=== PATIENT | male | born 1945 | race Caucasian/White ===

== ENCOUNTER 2018-02-18 09:30 | Inpatient (IN) | payer MEDICARE, OTHER ==
[2018-02-18 09:38] VITALS: BMI 26.5
[2018-02-18] MEDS ORDERED: cefTRIAXone (Rocephin) 1 gm Inj IVPB ONE (09:59)
[2018-02-18] MEDS ORDERED: Sodium Chloride 0.9% 1,000 ML IV STA (09:59)
--- NOTE | 2018-02-18 10:08 | ED PDOC ---
HPI: Male Pain Time Seen by Provider: 02/18/18 10:04 Chief Complaint (Nursing): Male Genitourinary Chief Complaint (Provider): testicular swelling History Per: Patient (72 y/o male h/o Dementia, here with right testicular swelling noted by family. Patient has been seen at [facility] 2 weeks ago with goldberg catheter placed for urinary retention. Patient was seen by urology at that time and family was told an appointment to place suprapubic catheter would be arranged. No fevers noted at home. Patient's mentation has been progressively worsening x weeks. Of note, patient has h/o nephrectomy secondary to malignant renal tumor last year.) Past Medical History Reviewed: Historical Data, Nursing Documentation, Vital Signs Vital Signs: Last Vital Signs Temp 99.7 F H 02/18/18 09:39 Pulse 77 02/18/18 09:39 Resp 18 02/18/18 09:39 BP 90/50 L 02/18/18 09:39 Pulse Ox 97 02/18/18 09:39 - Medical History PMH: Cardia Arrhythmia, Dementia, HTN, Parkinson's Disease - Family History Family History: States: No Known Family Hx - Home Medications Home Medications: Ambulatory Orders Medication Instructions Recorded Aspirin [Ecotrin] 81 mg PO DAILY 02/18/18 Cholecalciferol (Vitamin D3) 1,000 unit PO DAILY 02/18/18 [Vitamin D3] Clonazepam 3 mg PO DAILY 02/18/18 Fenofibrate,Micronized 134 mg PO DAILY 02/18/18 [Fenofibrate] Folic Acid 1 mg PO DAILY 02/18/18 Furosemide [Lasix] 20 mg PO DAILY 02/18/18 Lactulose 20 gm PO QOTHERDAY 02/18/18 Magnesium Oxide [Mag-Oxide 400 mg PO DAILY 02/18/18 Magnesium] Melatonin [Meladox Natural Sleep 3 mg PO HS 02/18/18 Aid] Metoprolol Tartrate [Lopressor] 25 mg PO DAILY 02/18/18 Montelukast [Singulair] 10 mg PO DAILY 02/18/18 Oxybutynin XL [Ditropan XL] 15 mg PO DAILY 02/18/18 QUEtiapine [SEROquel] 50 mg PO DAILY 02/18/18 Tamsulosin [Flomax] 0.4 mg PO DAILY 02/18/18 traMADol [Ultram] 50 mg PO Q6 PRN 02/18/18 - Allergies Allergies/Adverse Reactions: Allergies Allergy/AdvReac Type Severity Reaction Status Date / Time No Known Allergies Allergy Verified 02/18/18 09:51 Review of Systems ROS Statement: Except As Marked, All Systems Reviewed And Found Negative Physical Exam - Reviewed Nursing Documentation Reviewed: Yes Vital Signs Reviewed: Yes - Physical Exam Appears: Positive for: Well, Non-toxic, No Acute Distress Head Exam: Positive for: ATRAUMATIC, NORMAL INSPECTION, NORMOCEPHALIC Skin: Positive for: Normal Color, Warm, DRY Eye Exam: Positive for: EOMI, Normal appearance, PERRL ENT: Positive for: Normal ENT Inspection Neck: Positive for: Normal, Painless ROM Cardiovascular/Chest: Positive for: Regular Rate, Rhythm Respiratory: Positive for: CNT, Normal Breath Sounds Gastrointestinal/Abdominal: Positive for: Normal Exam, Soft Male Genital Exam: Positive for: other (right testicular swelling) Back: Positive for: Normal Inspection Extremity: Positive for: Normal ROM Neurologic/Psych: Positive for: Alert, Oriented - Laboratory Results Result Diagrams: 02/18/18 10:20 02/18/18 10:20 - ECG O2 Sat by Pulse Oximetry: 97 - Progress ED Course And Treament: NS 500 ml iv bolus Repeat BP 127/70 BC x 2 sent Rocephin 1 gm iv x 1 dose Goldberg catheter removed and replaced by nursing staff d/w Dr. Morales ultrasound testicular: IMPRESSION: There are bilateral epididymal cysts and/or spermatoceles. Moderate size right- sided hydrocele d/w dr. menon Disposition - Clinical Impression Clinical Impression: Urinary tract infection, Altered mental status, Dementia - Patient ED Disposition Is Patient to be Admitted: Yes - Disposition Disposition Time: 12:42 Condition: FAIR Instructions: Altered Mental Status (DC), Dementia (Including Alzheimer Disease), Urinary Tract Infections in Adults - Pt Status Changed To: Hospital Disposition Of: Observation
[2018-02-18 10:31] LABS: VENOUS BLOOD GAS BASE EXCESS 2.4 mmol/L (0.0-2.0); VENOUS BLOOD GAS PCO2 42 mmHg (40-60); VENOUS BLOOD GAS PO2 32 mm/Hg (30-55); VENOUS BLOOD PH 7.42 (7.32-7.43)
[2018-02-18] MEDS ORDERED: cefTRIAXone (Rocephin) 1 gm Inj ONE (10:34)
[2018-02-18 10:47] LABS: BASO # 0.1 K/uL (0.0-0.2); BASO % 0.6 % (0.0-2.0); EOS # 0.4 K/uL (0.0-0.7); EOS % 3.5 % (0.0-4.0); HEMOGLOBIN 10.9 g/dL (12.0-18.0); LYMPH # 1.1 K/uL (1.0-4.3); LYMPH % 10.2 % (20.0-40.0); MEAN CELL VOLUME 95.2 fl (80.0-94.0); MEAN CORPUSCULAR HEMOGLOBIN 31.3 pg (27.0-31.0); MEAN CORPUSCULAR HGB CONC 32.9 g/dL (33.0-37.0); MEAN PLATELET VOLUME 8.7 fl (7.2-11.7); MONO % 9.9 % (0.0-10.0); NEUT % 75.8 % (50.0-75.0); NRBC % 0.2 % (0.0-0.0); RBC 3.5 Mil/uL (4.40-5.90); RED CELL DISTRIBUTION WIDTH 13.6 % (11.5-14.5); WHITE BLOOD COUNT 10.6 K/uL (4.8-10.8)
--- NOTE | 2018-02-18 10:50 | RAD ---
Date of service: 02/18/2018 HISTORY: routine COMPARISON: There FINDINGS: LUNGS: There appears to be minimal linear atelectasis seen in the right mid to lower lung field PLEURA: No significant pleural effusion identified, no pneumothorax apparent. CARDIOVASCULAR: Aortic atherosclerotic calcification present. Normal cardiac size. No pulmonary vascular congestion. OSSEOUS STRUCTURES: There are the 2 tiny metallic fixation tacks overlying the right humeral head likely due to prior rotator cuff repair VISUALIZED UPPER ABDOMEN: Normal. OTHER FINDINGS: None. IMPRESSION: Minimal linear atelectasis right mid to lower lung field
[2018-02-18 11:12] LABS: SQUAMOUS EPITHIAL 1 /hpf (0-5); URINE BACTERIA RARE (<OCC); URINE BILIRUBIN NEGATIVE (NEGATIVE); URINE BLOOD SMALL (NEGATIVE); URINE CALCIUM OXALATE CRYSTALS RARE /hpf (<OCC); URINE CLARITY CLOUDY (Clear); URINE COLOR YELLOW (YELLOW); URINE GLUCOSE (UA) NEG (Normal); URINE HYALINE CAST 0-2 /hpf (0-2); URINE LEUKOCYTE ESTERASE LARGE Leu/uL (Negative); URINE PROTEIN 30 mg/dL (NEGATIVE); URINE UROBILINOGEN 0.2-1.0 mg/dL (0.2-1.0)
[2018-02-18 11:19] LABS: ALB/GLOB RATIO 1.1 (1.0-2.1); ALBUMIN 3.4 g/dL (3.5-5.0); ALT/SGPT 16 U/L (21-72); AST/SGOT 21 U/L (17-59); BLOOD UREA NITROGEN 27 mg/dl (9-20); CALCIUM 9.2 mg/dL (8.4-10.2); GFR NON-AFRICAN AMERICAN 46
--- NOTE | 2018-02-18 12:38 | US ---
Date of service: 02/18/2018 HISTORY: testicular swelling right TECHNIQUE: Realtime sonography through the scrotum with color and doppler flow. COMPARISON: None Available. FINDINGS: RIGHT TESTICLE: Measures 4.3 x 2.1 x 2.6 cm. Normal echotexture and flow. There is a right-sided appendix testis which measures approximately 0.5 x 0.3 x 0.4 cm. RIGHT EPIDIDYMIS: Epididymal head measures 0.8 x 0.8 x 0.8 cm. . There is a several small cysts and/or spermatoceles right epididymis; the 1st measures approximately 0.25cm in greatest dimension, the 2nd measures approximately 0.44 cm in greatest dimension and the 3rd measures 0.28 cm in greatest dimension. Right epididymis exhibits normal flow. LEFT TESTICLE: Measures 4.5 x 2.0 x 2.5 cm. Normal echotexture and flow. LEFT EPIDIDYMIS: Epididymal head measures 1.0 x 0.7 x 1.2 cm. Small epididymal cyst or spermatocele measuring 0.29 cm in greatest dimension. Right epididymis exhibits normal flow. HYDROCELE: Moderate-sized right-sided hydrocele.. VARICOCELE: None. OTHER FINDINGS: None. IMPRESSION: There are bilateral epididymal cysts and/or spermatoceles. Moderate size right-sided hydrocele
--- NOTE | 2018-02-18 15:32 | CP.PCM.HP ---
<Santi Mejia - Last Filed: 02/18/18 17:52> History of Present Illness - History of Present Illness History of Present Illness: Pt is demented with PMH of Parkinson, and HTN, malignant renal tumor, with h/o nephrectomy done last year; Presented to ER with his family due to swelling of testicle and foreskin of penis. All information were taken from family as patient was unable to respond to my questions. Family state that patient was seen in [facility] last week due to urinary retention. Urology was consulted, and suggested to arrange for placement of suprapubic catheter, which they failed to follow, Pt was discharged with Dwyer catheter, and nurses were coming to home to change it. in the past 3 days, his foreskin became swollen along with the testicle and they decided to bring him to [facility] ER. PMD: Dr Parrish Allergy: none Medication: see medication list PMH Parkinson, Htn, Renal tumor PSH: nephrectomy Social: no smoke,drink or drug use, live with ROS: unable to take due to patient mentation In ER course Pt recieved NS 500ml iv bolus BC x2 sent Rocephin was given Catheter was replaced by nurse Urology Dr Morales was consulted U/S There are bilateral epididymal cysts and/or spermatoceles. Moderate size right-sided hydrocele UA + for UTI Pt is demented with PMH of parkinson, and HTN, malignant renal tumor, will be admitted for treatment of b/l epididymal cyst, hydrocele, UTI and balanitis. Present on Admission - Present on Admission Any Indicators Present on Admission: Yes Urinary Catheter: Yes Review of Systems - Review of Systems Review of Systems: Unable to access due patient mentation Past Patient History - Past Social History Smoking Status: Never Smoked - CARDIAC Hx Cardiac Disorders: Yes Hx Cardia Arrhythmia: Yes Hx Hypertension: Yes - PULMONARY Hx Respiratory Disorders: No - NEUROLOGICAL Hx Neurological Disorder: Yes Hx Dementia: Yes - HEENT Hx HEENT Problems: Yes Other/Comment: Hard of hearing - RENAL Hx Chronic Kidney Disease: Yes - ENDOCRINE/METABOLIC Hx Endocrine Disorders: No - HEMATOLOGICAL/ONCOLOGICAL Hx Blood Disorders: No Hx AIDS: No Hx Human Immunodeficiency Virus (HIV): No - INTEGUMENTARY Hx Dermatological Problems: No - MUSCULOSKELETAL/RHEUMATOLOGICAL Hx Musculoskeletal Disorders: Yes Hx Falls: Yes - GASTROINTESTINAL Hx Gastrointestinal Disorders: No - GENITOURINARY/GYNECOLOGICAL Hx Genitourinary Disorders: Yes Hx Urinary Tract Infection: Yes - PSYCHIATRIC Hx Psychophysiologic Disorder: No Hx Substance Use: No - SURGICAL HISTORY Hx Surgeries: Yes Other/Comment: Nephrectomy secondary to malignant left renal tumor (2017) - ANESTHESIA Hx Anesthesia: Yes Hx Anesthesia Reactions: No Meds Allergies/Adverse Reactions: Allergies Allergy/AdvReac Type Severity Reaction Status Date / Time No Known Allergies Allergy Verified 02/18/18 09:51 Physical Exam - Constitutional Appears: Well, Non-toxic, No Acute Distress - Head Exam Head Exam: ATRAUMATIC, NORMAL INSPECTION, NORMOCEPHALIC - Eye Exam Eye Exam: EOMI, Normal appearance, PERRL Pupil Exam: NORMAL ACCOMODATION, PERRL - ENT Exam ENT Exam: Mucous Membranes Moist, Normal Exam - Neck Exam Neck exam: Positive for: Normal Inspection - Respiratory Exam Respiratory Exam: Clear to Auscultation Bilateral, NORMAL BREATHING PATTERN - Cardiovascular Exam Cardiovascular Exam: REGULAR RHYTHM, +S1, +S2 - GI/Abdominal Exam GI & Abdominal Exam: Normal Bowel Sounds, Soft. absent: Tenderness - Exam Exam: Circumcision, Scrotal Swelling External exam: absent: Ecchymosis, Erythema Additional comments: Balanitis was noted - Extremities Exam Extremities exam: Positive for: normal inspection. Negative for: calf tenderness - Neurological Exam Neurological exam: Alert - Skin Skin Exam: Dry, Intact, Normal Color Results - Vital Signs Recent Vital Signs: Last Vital Signs Temp 97.4 F L 02/18/18 14:39 Pulse 76 02/18/18 14:39 Resp 17 02/18/18 14:41 BP 116/63 02/18/18 14:39 Pulse Ox 98 02/18/18 13:41 - Labs Result Diagrams: 02/18/18 10:20 02/18/18 10:20 Labs: Laboratory Results - last 24 hr 02/18/18 02/18/18 02/18/18 10:11 10:15 10:20 WBC 10.6 RBC 3.50 L Hgb 10.9 L Hct 33.3 L MCV 95.2 H MCH 31.3 H MCHC 32.9 L RDW 13.6 Plt Count 221 MPV 8.7 Neut % (Auto) 75.8 H Lymph % (Auto) 10.2 L Hudson % (Auto) 9.9 Eos % (Auto) 3.5 Baso % (Auto) 0.6 Neut # (Auto) 8.0 H Lymph # (Auto) 1.1 Hudson # (Auto) 1.0 H Eos # (Auto) 0.4 Baso # (Auto) 0.1 pO2 32 VBG pH 7.42 VBG pCO2 42 VBG HCO3 25.9 VBG Total CO2 28.5 H VBG O2 Sat (Calc) 71.0 H VBG Base Excess 2.4 H VBG Potassium 3.4 L Sodium 139.0 Chloride 105.0 Glucose 123 H Lactate 0.8 FiO2 21.0 Potassium Carbon Dioxide Anion Gap BUN Creatinine Est GFR ( Amer) Est GFR (Non-Af Amer) Random Glucose Calcium Total Bilirubin AST ALT Alkaline Phosphatase Troponin I Total Protein Albumin Globulin Albumin/Globulin Ratio Venous Blood Potassium 3.4 L Urine Color Yellow Urine Clarity Cloudy Urine pH 5.0 Ur Specific [place] 1.019 Urine Protein 30 Urine Glucose (UA) Neg Urine Ketones Negative Urine Blood Small Urine Nitrate Negative Urine Bilirubin Negative Urine Urobilinogen 0.2-1.0 Ur Leukocyte Esterase Large Urine RBC (Auto) 22 H Urine Microscopic WBC 72 H Ur Squamous Epith Cells 1 Calcium Oxalate Crystal Rare Urine Bacteria Rare Hyaline Casts 0-2 Urine Yeast (Budding) Few H 02/18/18 10:20 WBC RBC Hgb Hct MCV MCH MCHC RDW Plt Count MPV Neut % (Auto) Lymph % (Auto) Hudson % (Auto) Eos % (Auto) Baso % (Auto) Neut # (Auto) Lymph # (Auto) Hudson # (Auto) Eos # (Auto) Baso # (Auto) pO2 VBG pH VBG pCO2 VBG HCO3 VBG Total CO2 VBG O2 Sat (Calc) VBG Base Excess VBG Potassium Sodium 140 Chloride 107 Glucose Lactate FiO2 Potassium 3.4 L Carbon Dioxide 25 Anion Gap 11 BUN 27 H Creatinine 1.5 Est GFR ( Amer) 56 Est GFR (Non-Af Amer) 46 Random Glucose 120 H Calcium 9.2 Total Bilirubin 0.6 AST 21 ALT 16 L Alkaline Phosphatase 42 Troponin I < 0.0120 Total Protein 6.4 Albumin 3.4 L Globulin 3.0 Albumin/Globulin Ratio 1.1 Venous Blood Potassium Urine Color Urine Clarity Urine pH Ur Specific [place] Urine Protein Urine Glucose (UA) Urine Ketones Urine Blood Urine Nitrate Urine Bilirubin Urine Urobilinogen Ur Leukocyte Esterase Urine RBC (Auto) Urine Microscopic WBC Ur Squamous Epith Cells Calcium Oxalate Crystal Urine Bacteria Hyaline Casts Urine Yeast (Budding) Assessment & Plan - Assessment and Plan (Free Text) Assessment: Pt is demented with PMH of Parkinson, and HTN, malignant renal tumor, with h/o nephrectomy done last year; Presented to ER with his family due to swelling of testicle and foreskin. All information were taken from family as patient was unable to respond to my questions. Family state that patient was seen in [facility] last week due to urinary retention. Urology was consulted, and suggested to arrange for placement of suprapubic catheter, which they failed to follow, Pt was discharged with Dwyer catheter, and nurses were coming to home to change it. in the past 3 days, his foreskin became swollen along with the testicle and they decided to bring him to [facility] ER. U/S There are bilateral epididymal cysts and/or spermatoceles. Moderate size right-sided hydrocele Balanitis + UTI UA + leukocytosis, bacteria Balanitis noted on Physical exam US + for hydrocle BC sent will follow up Urology is consulted, F/U recommendation Will start on Rocephin 1mg daily f/u CBC and CMP tomorrow Monitor for changes HTN Chronic, controlled continue home medication Parkinson Chronic Continue home medication DVT prophylaxis Lovenox SC 40 SCD Code DNR/DNI <Britton Kaur D - Last Filed: 02/18/18 18:19> Results - Vital Signs Recent Vital Signs: Last Vital Signs Temp 97.5 F L 02/18/18 16:24 Pulse 78 02/18/18 16:24 Resp 18 02/18/18 16:24 BP 155/77 H 02/18/18 16:24 Pulse Ox 99 02/18/18 16:24 - Labs Result Diagrams: 02/18/18 10:20 02/18/18 10:20 Labs: Laboratory Results - last 24 hr 02/18/18 02/18/18 02/18/18 10:11 10:15 10:20 WBC 10.6 RBC 3.50 L Hgb 10.9 L Hct 33.3 L MCV 95.2 H MCH 31.3 H MCHC 32.9 L RDW 13.6 Plt Count 221 MPV 8.7 Neut % (Auto) 75.8 H Lymph % (Auto) 10.2 L Hudson % (Auto) 9.9 Eos % (Auto) 3.5 Baso % (Auto) 0.6 Neut # (Auto) 8.0 H Lymph # (Auto) 1.1 Hudson # (Auto) 1.0 H Eos # (Auto) 0.4 Baso # (Auto) 0.1 pO2 32 VBG pH 7.42 VBG pCO2 42 VBG HCO3 25.9 VBG Total CO2 28.5 H VBG O2 Sat (Calc) 71.0 H VBG Base Excess 2.4 H VBG Potassium 3.4 L Sodium 139.0 Chloride 105.0 Glucose 123 H Lactate 0.8 FiO2 21.0 Potassium Carbon Dioxide Anion Gap BUN Creatinine Est GFR ( Amer) Est GFR (Non-Af Amer) Random Glucose Calcium Total Bilirubin AST ALT Alkaline Phosphatase Troponin I Total Protein Albumin Globulin Albumin/Globulin Ratio Venous Blood Potassium 3.4 L Urine Color Yellow Urine Clarity Cloudy Urine pH 5.0 Ur Specific [place] 1.019 Urine Protein 30 Urine Glucose (UA) Neg Urine Ketones Negative Urine Blood Small Urine Nitrate Negative Urine Bilirubin Negative Urine Urobilinogen 0.2-1.0 Ur Leukocyte Esterase Large Urine RBC (Auto) 22 H Urine Microscopic WBC 72 H Ur Squamous Epith Cells 1 Calcium Oxalate Crystal Rare Urine Bacteria Rare Hyaline Casts 0-2 Urine Yeast (Budding) Few H 02/18/18 10:20 WBC RBC Hgb Hct MCV MCH MCHC RDW Plt Count MPV Neut % (Auto) Lymph % (Auto) Hudson % (Auto) Eos % (Auto) Baso % (Auto) Neut # (Auto) Lymph # (Auto) Hudson # (Auto) Eos # (Auto) Baso # (Auto) pO2 VBG pH VBG pCO2 VBG HCO3 VBG Total CO2 VBG O2 Sat (Calc) VBG Base Excess VBG Potassium Sodium 140 Chloride 107 Glucose Lactate FiO2 Potassium 3.4 L Carbon Dioxide 25 Anion Gap 11 BUN 27 H Creatinine 1.5 Est GFR ( Amer) 56 Est GFR (Non-Af Amer) 46 Random Glucose 120 H Calcium 9.2 Total Bilirubin 0.6 AST 21 ALT 16 L Alkaline Phosphatase 42 Troponin I < 0.0120 Total Protein 6.4 Albumin 3.4 L Globulin 3.0 Albumin/Globulin Ratio 1.1 Venous Blood Potassium Urine Color Urine Clarity Urine pH Ur Specific [place] Urine Protein Urine Glucose (UA) Urine Ketones Urine Blood Urine Nitrate Urine Bilirubin Urine Urobilinogen Ur Leukocyte Esterase Urine RBC (Auto) Urine Microscopic WBC Ur Squamous Epith Cells Calcium Oxalate Crystal Urine Bacteria Hyaline Casts Urine Yeast (Budding) Attending/Attestation - Attestation I have personally seen and examined this patient.: Yes I have fully participated in the care of the patient.: Yes I have reviewed all pertinent clinical information: Yes Notes (Text): 02/18/18 18:19 Patient seen and examined with resident. Case discussed and agreed with assessment and plan of management.
[2018-02-18] MEDS ORDERED: cefTRIAXone (Rocephin) 1 gm Inj IM ONE (17:21)
--- NOTE | 2018-02-18 23:22 | CARD ---
APPROVED REPORT Date of service: 02/18/2018 EKG Measurement Heart [id number] <Conclusion> Normal sinus rhythm Nonspecific ST changes, possible inferolateral ischemia Abnormal EKG
[2018-02-19 06:28] LABS: BASO # 0.1 K/uL (0.0-0.2); BASO % 0.7 % (0.0-2.0); EOS # 0.4 K/uL (0.0-0.7); EOS % 4.7 % (0.0-4.0); HEMOGLOBIN 11.4 g/dL (12.0-18.0); LYMPH # 1.5 K/uL (1.0-4.3); LYMPH % 17.1 % (20.0-40.0); MEAN CELL VOLUME 93.2 fl (80.0-94.0); MEAN CORPUSCULAR HEMOGLOBIN 31.1 pg (27.0-31.0); MEAN CORPUSCULAR HGB CONC 33.4 g/dL (33.0-37.0); MEAN PLATELET VOLUME 8.5 fl (7.2-11.7); MONO # 0.7 K/uL (0.0-0.8); MONO % 7.7 % (0.0-10.0); NEUT # 6.2 K/uL (1.8-7.0); NEUT % 69.8 % (50.0-75.0); RBC 3.66 Mil/uL (4.40-5.90); RED CELL DISTRIBUTION WIDTH 13.4 % (11.5-14.5); WHITE BLOOD COUNT 8.9 K/uL (4.8-10.8)
[2018-02-19] MEDS ORDERED: cefTRIAXone (Rocephin) 1 gm Inj IM SCH (09:00)
[2018-02-19] MEDS ORDERED: Potassium Chloride 20 mEq ER Tab PO ONE (09:30)
[2018-02-19] MEDS: Pantoprazole 40 mg EC Tab PO SCH (09:41)
[2018-02-19] MEDS: Enoxaparin 40 mg Syringe SC SCH (09:41)
[2018-02-19] MEDS: Cholecalciferol 1,000 INTLU TAB PO SCH (09:42)
--- NOTE | 2018-02-19 09:43 | CP.PCM.PN ---
<Santi Mejia - Last Filed: 02/19/18 09:46> Subjective - Date & Time of Evaluation Date of Evaluation: 02/19/18 Time of Evaluation: 07:00 - Subjective Subjective: Pt is seen and examined at bedside. No acute event overnight. Pt is more awake and alert today, he is able to respond and understand. Pt had no complain today, he have Goldberg cath attached and draining (1400ml) , he slept well denies fever chill chest pain sob, abd pain, dysuria. Objective - Vital Signs/Intake and Output Vital Signs (last 24 hours): Temp Pulse Resp BP Pulse Ox 97.6 F 78 20 148/74 94 L 02/19/18 09:00 02/19/18 09:00 02/19/18 09:00 02/19/18 09:00 02/19/18 09:00 - Medications Medications: Current Medications Aspirin (Ecotrin) 81 mg PO DAILY [facility] Ceftriaxone Sodium (Rocephin) 1 gm IM DAILY [facility]; Protocol Cholecalciferol (Vitamin D) 1,000 intlu PO DAILY [facility] Clonazepam (Klonopin) 3 mg PO DAILY [facility] Docusate Sodium (Colace) 100 mg PO BID [facility] Last Admin: 02/18/18 16:25 Dose: Not Given Enoxaparin Sodium (Lovenox) 40 mg SC DAILY [facility]; Protocol Fenofibrate (Tricor) 145 mg PO DAILY [facility] Finasteride (Proscar) 5 mg PO DAILY [facility] Folic Acid (Folic Acid) 1 mg PO DAILY [facility] Metoprolol Tartrate (Lopressor) 12.5 mg PO Q12 [facility] Last Admin: 02/18/18 21:45 Dose: 12.5 mg Montelukast Sodium (Singulair) 10 mg PO DAILY [facility] Pantoprazole Sodium (Protonix Ec Tab) 40 mg PO DAILY [facility] Quetiapine Fumarate (Seroquel) 50 mg PO DAILY [facility] Tamsulosin HCl (Flomax) 0.4 mg PO DAILY [facility] Tramadol HCl (Ultram) 50 mg PO Q6 PRN PRN Reason: Pain, severe (8-10) - Labs Labs: 02/19/18 05:40 02/18/18 10:20 - Constitutional Appears: Well, Non-toxic, No Acute Distress - Head Exam Head Exam: ATRAUMATIC, NORMAL INSPECTION, NORMOCEPHALIC - Eye Exam Eye Exam: EOMI, Normal appearance, PERRL Pupil Exam: NORMAL ACCOMODATION, PERRL - ENT Exam ENT Exam: Mucous Membranes Moist, Normal Exam - Neck Exam Neck Exam: Full ROM, Normal Inspection - Respiratory Exam Respiratory Exam: Clear to Ausculation Bilateral, NORMAL BREATHING PATTERN - Cardiovascular Exam Cardiovascular Exam: REGULAR RHYTHM, +S1, +S2 - GI/Abdominal Exam GI & Abdominal Exam: Soft, Normal Bowel Sounds - Exam Exam: Scrotal Swelling. absent: Testicular Tenderness, Uretheral Discharge, Bladder Distension Additional comments: Foreskin swollen, no ulcer, discharge, or change in color noted. - Extremities Exam Extremities Exam: Full ROM, Normal Capillary Refill, Normal Inspection - Back Exam Back Exam: NORMAL INSPECTION - Neurological Exam Neurological Exam: Alert, Awake - Psychiatric Exam Psychiatric exam: Normal Affect - Skin Skin Exam: Dry, Intact, Normal Color, Warm Assessment and Plan - Assessment and Plan (Free Text) Assessment: Assessment: Pt is demented with PMH of Parkinson, and HTN, malignant renal tumor, with h/o nephrectomy done last year; Presented to ER with his family due to swelling of testicle and foreskin. All information were taken from family as patient was unable to respond to my questions. Family state that patient was seen in [facility] last week due to urinary retention. Urology was consulted, and suggested to arrange for placement of suprapubic catheter, which they failed to follow, Pt was discharged with Goldberg catheter, and nurses were coming to home to change it. in the past 3 days, his foreskin became swollen along with the testicle and they decided to bring him to [place] ER. U/S There are bilateral epididymal cysts and/or spermatoceles. Moderate size right-sided hydrocele Balanitis + UTI Afebrile UA + leukocytosis, bacteria Balanitis noted on Physical exam US + for hydrocele Follow up BC F/U Urology recommendation Continue Rocephin 1mg day 2 Monitor for changes Urine retention Proscar ordered. Goldberg attached, and patent, 1,400 Ml drained Hypokalemia K 3.4 Start KCL 20mg Po HTN Chronic, controlled continue home medication Parkinson Chronic Continue home medication DVT prophylaxis Lovenox SC 40 SCD Code DNR/DNI <Britton Kaur D - Last Filed: 02/19/18 17:41> Objective - Vital Signs/Intake and Output Vital Signs (last 24 hours): Temp Pulse Resp BP Pulse Ox 97.5 F L 69 20 120/55 L 97 02/19/18 17:01 02/19/18 17:01 02/19/18 17:01 02/19/18 17:01 02/19/18 17:01 - Medications Medications: Current Medications Aspirin (Ecotrin) 81 mg PO DAILY [facility] Last Admin: 02/19/18 09:41 Dose: 81 mg Cholecalciferol (Vitamin D) 1,000 intlu PO DAILY [facility] Last Admin: 02/19/18 09:42 Dose: 1,000 intlu Clonazepam (Klonopin) 0.25 mg PO HS [facility] Docusate Sodium (Colace) 100 mg PO BID [facility] Last Admin: 02/19/18 09:40 Dose: 100 mg Enoxaparin Sodium (Lovenox) 40 mg SC DAILY [facility]; Protocol Last Admin: 02/19/18 09:41 Dose: 40 mg Fenofibrate (Tricor) 145 mg PO DAILY [facility] Last Admin: 02/19/18 09:41 Dose: 145 mg Finasteride (Proscar) 5 mg PO DAILY [facility] Last Admin: 02/19/18 10:46 Dose: 5 mg Folic Acid (Folic Acid) 1 mg PO DAILY [facility] Last Admin: 02/19/18 09:40 Dose: 1 mg Ceftriaxone Sodium 1 gm/ (Sodium Chloride) 100 mls @ 100 mls/hr IVPB DAILY [facility] Last Admin: 02/19/18 11:48 Dose: 100 mls/hr Metoprolol Tartrate (Lopressor) 12.5 mg PO Q12 [facility] Last Admin: 02/19/18 09:41 Dose: 12.5 mg Montelukast Sodium (Singulair) 10 mg PO DAILY [facility] Last Admin: 02/19/18 09:42 Dose: 10 mg Pantoprazole Sodium (Protonix Ec Tab) 40 mg PO DAILY [facility] Last Admin: 02/19/18 09:41 Dose: 40 mg Quetiapine Fumarate (Seroquel) 50 mg PO HS [facility] Tamsulosin HCl (Flomax) 0.8 mg PO DAILY [facility] Tramadol HCl (Ultram) 50 mg PO Q6 PRN PRN Reason: Pain, severe (8-10) - Labs Labs: 02/19/18 05:40 02/19/18 11:17 Attending/Attestation - Attestation I have personally seen and examined this patient.: Yes I have fully participated in the care of the patient.: Yes I have reviewed all pertinent clinical information, including history, physical exam and plan: Yes Notes (Text): 02/19/18 17:36 Patient seen and examined with resident. Spoke with Dr Morales, urologist, he suggested to remove goldberg catheter tomorrow at 6am and he would try to retract the prepuce which caused the swelling. He would not want to put a suprapubic catheter until we find out the cause of the urinary retention.
[2018-02-19] MEDS ORDERED: cefTRIAXone (Rocephin) 1 gm Inj IVPB SCH (10:45)
--- NOTE | 2018-02-19 11:15 | CP.PCM.CON ---
History of Present Illness - History of Present Illness History of Present Illness: Psychiatry consult note CC: Dementia w/ intermittent periods of agitation HPI: 72 yo male w/ h/o Lewy Body Dementia, HTN, malignant renal tumor w/ h/o nephrectomy, presents with swelling of the foreskin of the penis and testicle. Patient is acutely sedated and unable to answer any questions. L[employer] spoke with patient's and daughter, who confirmed that the patient is currently prescribed Seroquel 50 mg PO HS, Klonopin 0.25 mg PO HS and Carbidopa/Levodopa 25/100 mg 1/2 tablet Q12. Daughter confirmed that patient does have intermittent visual hallucinations and is closely followed by his neurologist. Pt does not have any psychiatric treatment. PMD: Dr Parrish Allergy: none Medication: see medication list PMH: Lewy Body Dementia, HTN, malignant renal tumor w/ h/o nephrectomy Social: Lives w/ , no current drugs/etoh/cig use ROS: unable to take due to patient mentation Impression: 72 yo male w/ Lewy Body Dementia, HTN, malignant renal tumor w/ h/o nephrectomy, admitted w/ balanitis and UTI, currently unable to engage in psychiatric interview due to lethargy. Recommendations: -Continue with current medications as prescribed by his neurologist: Seroquel 50 mg PO HS, Klonopin 0.25 mg PO HS and Carbidopa/Levodopa 25/100 mg 1/2 tablet Q12 -Consider neurology consult further evaluation Past Patient History - Past Social History Smoking Status: Never Smoked - CARDIAC Hx Cardiac Disorders: Yes Hx Cardia Arrhythmia: Yes Hx Hypertension: Yes - PULMONARY Hx Respiratory Disorders: No - NEUROLOGICAL Hx Neurological Disorder: Yes Hx Dementia: Yes - HEENT Hx HEENT Problems: Yes Other/Comment: Hard of hearing - RENAL Hx Chronic Kidney Disease: Yes - ENDOCRINE/METABOLIC Hx Endocrine Disorders: No - HEMATOLOGICAL/ONCOLOGICAL Hx Blood Disorders: No Hx AIDS: No Hx Human Immunodeficiency Virus (HIV): No - INTEGUMENTARY Hx Dermatological Problems: No - MUSCULOSKELETAL/RHEUMATOLOGICAL Hx Musculoskeletal Disorders: Yes Hx Falls: Yes - GASTROINTESTINAL Hx Gastrointestinal Disorders: No - GENITOURINARY/GYNECOLOGICAL Hx Genitourinary Disorders: Yes Hx Urinary Tract Infection: Yes - PSYCHIATRIC Hx Psychophysiologic Disorder: No Hx Substance Use: No - SURGICAL HISTORY Hx Surgeries: Yes Other/Comment: Nephrectomy secondary to malignant left renal tumor (2017) - ANESTHESIA Hx Anesthesia: Yes Hx Anesthesia Reactions: No Meds Allergies/Adverse Reactions: Allergies Allergy/AdvReac Type Severity Reaction Status Date / Time No Known Allergies Allergy Verified 02/18/18 09:51 - Medications Medications: Current Medications Aspirin (Ecotrin) 81 mg PO DAILY [facility] Last Admin: 02/19/18 09:41 Dose: 81 mg Cholecalciferol (Vitamin D) 1,000 intlu PO DAILY [facility] Last Admin: 02/19/18 09:42 Dose: 1,000 intlu Clonazepam (Klonopin) 3 mg PO DAILY [facility] Last Admin: 02/19/18 09:44 Dose: 3 mg Docusate Sodium (Colace) 100 mg PO BID [facility] Last Admin: 02/19/18 09:40 Dose: 100 mg Enoxaparin Sodium (Lovenox) 40 mg SC DAILY [facility]; Protocol Last Admin: 02/19/18 09:41 Dose: 40 mg Fenofibrate (Tricor) 145 mg PO DAILY [facility] Last Admin: 02/19/18 09:41 Dose: 145 mg Finasteride (Proscar) 5 mg PO DAILY [facility] Last Admin: 02/19/18 10:46 Dose: 5 mg Folic Acid (Folic Acid) 1 mg PO DAILY [facility] Last Admin: 02/19/18 09:40 Dose: 1 mg Ceftriaxone Sodium 1 gm/ (Sodium Chloride) 100 mls @ 100 mls/hr IVPB DAILY [facility] Metoprolol Tartrate (Lopressor) 12.5 mg PO Q12 [facility] Last Admin: 02/19/18 09:41 Dose: 12.5 mg Montelukast Sodium (Singulair) 10 mg PO DAILY [facility] Last Admin: 02/19/18 09:42 Dose: 10 mg Pantoprazole Sodium (Protonix Ec Tab) 40 mg PO DAILY [facility] Last Admin: 02/19/18 09:41 Dose: 40 mg Quetiapine Fumarate (Seroquel) 50 mg PO DAILY [facility] Last Admin: 02/19/18 09:42 Dose: 50 mg Tamsulosin HCl (Flomax) 0.4 mg PO DAILY [facility] Last Admin: 02/19/18 09:41 Dose: 0.4 mg Tramadol HCl (Ultram) 50 mg PO Q6 PRN PRN Reason: Pain, severe (8-10) Results - Vital Signs Recent Vital Signs: Last Vital Signs Temp 97.6 F 02/19/18 09:00 Pulse 78 02/19/18 09:41 Resp 20 02/19/18 09:00 BP 148/74 02/19/18 09:41 Pulse Ox 94 L 02/19/18 09:00 - Labs Result Diagrams: 02/19/18 05:40 02/19/18 11:17 Labs: Laboratory Results - last 24 hr 02/18/18 02/18/18 02/19/18 10:15 10:20 05:40 WBC 8.9 RBC 3.66 L Hgb 11.4 L Hct 34.1 L MCV 93.2 D MCH 31.1 H MCHC 33.4 RDW 13.4 Plt Count 227 MPV 8.5 Neut % (Auto) 69.8 Lymph % (Auto) 17.1 L [place] % (Auto) 7.7 Eos % (Auto) 4.7 H Baso % (Auto) 0.7 Neut # (Auto) 6.2 Lymph # (Auto) 1.5 [place] # (Auto) 0.7 Eos # (Auto) 0.4 Baso # (Auto) 0.1 Sodium 140 Potassium 3.4 L Chloride 107 Carbon Dioxide 25 Anion Gap 11 BUN 27 H Creatinine 1.5 Est GFR ( Amer) 56 Est GFR (Non-Af Amer) 46 Random Glucose 120 H Calcium 9.2 Total Bilirubin 0.6 AST 21 ALT 16 L Alkaline Phosphatase 42 Total Protein 6.4 Albumin 3.4 L Globulin 3.0 Albumin/Globulin Ratio 1.1 Urine Color Yellow Urine Clarity Cloudy Urine pH 5.0 Ur Specific [place] 1.019 Urine Protein 30 Urine Glucose (UA) Neg Urine Ketones Negative Urine Blood Small Urine Nitrate Negative Urine Bilirubin Negative Urine Urobilinogen 0.2-1.0 Ur Leukocyte Esterase Large Urine RBC (Auto) 22 H Urine Microscopic WBC 72 H Ur Squamous Epith Cells 1 Calcium Oxalate Crystal Rare Urine Bacteria Rare Hyaline Casts 0-2 Urine Yeast (Budding) Few H
[2018-02-19 11:30] LABS: BLOOD UREA NITROGEN 27 mg/dl (9-20); CALCIUM 9.3 mg/dL (8.4-10.2); GFR NON-AFRICAN AMERICAN 59
[2018-02-19] MEDS: Dextrose 5%/0.45% NS 1,000 ML IV SCH (18:01)
--- NOTE | 2018-02-20 00:13 | CP.PCM.CON ---
History of Present Illness - History of Present Illness History of Present Illness: UROLOGY Called to see this 72 yr male for eval of current gu conudition.The patient is completely confused ti time place and person. The info I could obtain was from chart review. He supposedly had a nephrectomy about 1 yr ago for re moval of a tumor. He was recently at [facility] in urinary retention at which time a goldberg was inserted and perhaps a mention of a suprapubic tube was discussed. Now he appears in our ER for eval of penile swelling and UTI. Clinically he has a urine c&s showing a G+ uti sens pending. On PE he has an indwelling goldberg draining well. He has a significant coronal swelling because the person responsible for inserting the goldberg did not reduce the foreskin at time of cath placement and now the swelling. The pt is rather garded and was not willing for me to reduce the foreskin. I would advise now while on flomax to remove goldberg in am nd give a voiding trial and perhaps if pt allows to try to reduce the foreskin. . I am rather concerned that this patient has been now in the hands of three urologists in less than 1 year with some rather major procedures done to him and we allow him to hospital hop for care. This is not the way I wish to give my professional care and advise Past Patient History - Past Social History Smoking Status: Never Smoked - CARDIAC Hx Cardiac Disorders: Yes Hx Cardia Arrhythmia: Yes Hx Hypertension: Yes - PULMONARY Hx Respiratory Disorders: No - NEUROLOGICAL Hx Neurological Disorder: Yes Hx Dementia: Yes - HEENT Hx HEENT Problems: Yes Other/Comment: Hard of hearing - RENAL Hx Chronic Kidney Disease: Yes - ENDOCRINE/METABOLIC Hx Endocrine Disorders: No - HEMATOLOGICAL/ONCOLOGICAL Hx Blood Disorders: No Hx AIDS: No Hx Human Immunodeficiency Virus (HIV): No - INTEGUMENTARY Hx Dermatological Problems: No - MUSCULOSKELETAL/RHEUMATOLOGICAL Hx Musculoskeletal Disorders: Yes Hx Falls: Yes - GASTROINTESTINAL Hx Gastrointestinal Disorders: No - GENITOURINARY/GYNECOLOGICAL Hx Genitourinary Disorders: Yes Hx Urinary Tract Infection: Yes - PSYCHIATRIC Hx Psychophysiologic Disorder: No Hx Substance Use: No - SURGICAL HISTORY Hx Surgeries: Yes Other/Comment: Nephrectomy secondary to malignant left renal tumor (2017) - ANESTHESIA Hx Anesthesia: Yes Hx Anesthesia Reactions: No Meds Allergies/Adverse Reactions: Allergies Allergy/AdvReac Type Severity Reaction Status Date / Time No Known Allergies Allergy Verified 02/18/18 09:51 - Medications Medications: Current Medications Aspirin (Ecotrin) 81 mg PO DAILY [facility] Last Admin: 02/19/18 09:41 Dose: 81 mg Cholecalciferol (Vitamin D) 1,000 intlu PO DAILY [facility] Last Admin: 02/19/18 09:42 Dose: 1,000 intlu Clonazepam (Klonopin) 0.25 mg PO [facility] Docusate Sodium (Colace) 100 mg PO BID [facility] Last Admin: 02/19/18 18:02 Dose: Not Given Enoxaparin Sodium (Lovenox) 40 mg SC DAILY [facility]; Protocol Last Admin: 02/19/18 09:41 Dose: 40 mg Fenofibrate (Tricor) 145 mg PO DAILY [facility] Last Admin: 02/19/18 09:41 Dose: 145 mg Finasteride (Proscar) 5 mg PO DAILY [facility] Last Admin: 02/19/18 10:46 Dose: 5 mg Folic Acid (Folic Acid) 1 mg PO DAILY [facility] Last Admin: 02/19/18 09:40 Dose: 1 mg Ceftriaxone Sodium 1 gm/ (Sodium Chloride) 100 mls @ 100 mls/hr IVPB DAILY [facility] Last Admin: 02/19/18 11:48 Dose: 100 mls/hr Dextrose/Sodium Chloride (Dextrose 5%/0.45% Ns 1000 Ml) 1,000 mls @ 80 mls/hr IV .[id number] [facility] Stop: 02/20/18 17:46 Last Admin: 02/19/18 18:01 Dose: 80 mls/hr Metoprolol Tartrate (Lopressor) 12.5 mg PO Q12 [facility] Last Admin: 02/19/18 21:34 Dose: 12.5 mg Montelukast Sodium (Singulair) 10 mg PO DAILY [facility] Last Admin: 02/19/18 09:42 Dose: 10 mg Pantoprazole Sodium (Protonix Ec Tab) 40 mg PO DAILY [facility] Last Admin: 02/19/18 09:41 Dose: 40 mg Quetiapine Fumarate (Seroquel) 50 mg PO HS [facility] Tamsulosin HCl (Flomax) 0.8 mg PO DAILY [facility] Tramadol HCl (Ultram) 50 mg PO Q6 PRN PRN Reason: Pain, severe (8-10) Results - Vital Signs Recent Vital Signs: Last Vital Signs Temp 97.5 F L 02/19/18 17:01 Pulse 62 02/19/18 21:34 Resp 20 02/19/18 17:01 BP 167/76 H 02/19/18 21:34 Pulse Ox 97 02/19/18 17:01 - Labs Result Diagrams: 02/19/18 05:40 02/19/18 11:17 Labs: Laboratory Results - last 24 hr 02/19/18 02/19/18 02/19/18 05:40 11:17 17:42 WBC 8.9 RBC 3.66 L Hgb 11.4 L Hct 34.1 L MCV 93.2 D MCH 31.1 H MCHC 33.4 RDW 13.4 Plt Count 227 MPV 8.5 Neut % (Auto) 69.8 Lymph % (Auto) 17.1 L [place] % (Auto) 7.7 Eos % (Auto) 4.7 H Baso % (Auto) 0.7 Neut # (Auto) 6.2 Lymph # (Auto) 1.5 [place] # (Auto) 0.7 Eos # (Auto) 0.4 Baso # (Auto) 0.1 Sodium 140 Potassium 3.4 L Chloride 107 Carbon Dioxide 25 Anion Gap 11 BUN 27 H Creatinine 1.2 Est GFR ( Amer) > 60 Est GFR (Non-Af Amer) 59 POC Glucose (mg/dL) 84 Random Glucose 132 H Calcium 9.3
[2018-02-20 06:20] LABS: HEMOGLOBIN 12.8 g/dL (12.0-18.0); MEAN CELL VOLUME 93.8 fl (80.0-94.0); MEAN CORPUSCULAR HEMOGLOBIN 30.6 pg (27.0-31.0); MEAN CORPUSCULAR HGB CONC 32.6 g/dL (33.0-37.0); RBC 4.18 Mil/uL (4.40-5.90); RED CELL DISTRIBUTION WIDTH 13.4 % (11.5-14.5); WHITE BLOOD COUNT 12.2 K/uL (4.8-10.8)
[2018-02-20] MEDS: Dextrose 5%/0.45% NS 1,000 ML IV SCH (06:27)
[2018-02-20 06:41] LABS: BLOOD UREA NITROGEN 25 mg/dl (9-20); CALCIUM 9.5 mg/dL (8.4-10.2); GFR NON-AFRICAN AMERICAN 59
[2018-02-20 08:09] VITALS: RESP 20
[2018-02-20] MEDS: Enoxaparin 40 mg Syringe SC SCH (08:14)
[2018-02-20] MEDS: Cholecalciferol 1,000 INTLU TAB PO SCH (08:15)
[2018-02-20] MEDS: Pantoprazole 40 mg EC Tab PO SCH (08:17)
--- NOTE | 2018-02-20 12:49 | CP.PCM.PN ---
<Santi Mejia - Last Filed: 02/20/18 16:35> Subjective - Date & Time of Evaluation Date of Evaluation: 02/20/18 Time of Evaluation: 12:50 - Subjective Subjective: Pt is seen and examined at bedside. Pt is mildly agitated, and unable to communicate properly. Dwyer cath was taken off today, and he was able to urinate. Bladder scan was done by nurse and showed 114 as residual. There is tenderness on palpation of left upper extremity Objective - Vital Signs/Intake and Output Vital Signs (last 24 hours): Temp Pulse Resp BP Pulse Ox 99.8 F H 89 20 150/71 95 02/20/18 08:08 02/20/18 08:08 02/20/18 08:08 02/20/18 08:08 02/20/18 08:08 - Medications Medications: Current Medications Aspirin (Ecotrin) 81 mg PO DAILY [facility] Last Admin: 02/20/18 08:16 Dose: 81 mg Cholecalciferol (Vitamin D) 1,000 intlu PO DAILY [facility] Last Admin: 02/20/18 08:15 Dose: 1,000 intlu Clonazepam (Klonopin) 0.25 mg PO HS [facility] Clotrimazole (Lotrimin 1% Cream) 1 applic TOP BID [facility] Docusate Sodium (Colace) 100 mg PO BID [facility] Last Admin: 02/20/18 08:14 Dose: 100 mg Enoxaparin Sodium (Lovenox) 40 mg SC DAILY [facility]; Protocol Last Admin: 02/20/18 08:14 Dose: 40 mg Fenofibrate (Tricor) 145 mg PO DAILY [facility] Last Admin: 02/20/18 08:18 Dose: 145 mg Finasteride (Proscar) 5 mg PO DAILY [facility] Last Admin: 02/20/18 08:17 Dose: 5 mg Folic Acid (Folic Acid) 1 mg PO DAILY [facility] Last Admin: 02/20/18 08:17 Dose: 1 mg Dextrose/Sodium Chloride (Dextrose 5%/0.45% Ns 1000 Ml) 1,000 mls @ 80 mls/hr IV .[id number] [facility] Stop: 02/20/18 17:46 Last Admin: 02/20/18 06:27 Dose: 80 mls/hr Ampicillin Sodium/Sulbactam (Sodium 1.5 gm/ Sodium Chloride) 100 mls @ 100 mls/hr IVPB Q6 [facility]; Protocol Metoprolol Tartrate (Lopressor) 12.5 mg PO Q12 [facility] Last Admin: 02/20/18 08:15 Dose: 12.5 mg Montelukast Sodium (Singulair) 10 mg PO DAILY [facility] Last Admin: 02/20/18 08:18 Dose: 10 mg Pantoprazole Sodium (Protonix Ec Tab) 40 mg PO DAILY [facility] Last Admin: 02/20/18 08:17 Dose: 40 mg Quetiapine Fumarate (Seroquel) [address] [facility] Tamsulosin HCl (Flomax) 0.8 mg PO DAILY [facility] Last Admin: 02/20/18 08:16 Dose: 0.8 mg Tramadol HCl (Ultram) 50 mg PO Q6 PRN PRN Reason: Pain, severe (8-10) - Labs Labs: 02/20/18 05:40 02/20/18 05:40 - Constitutional Appears: Well, Non-toxic, No Acute Distress - Head Exam Head Exam: ATRAUMATIC, NORMAL INSPECTION, NORMOCEPHALIC - Eye Exam Eye Exam: EOMI, Normal appearance, PERRL Pupil Exam: NORMAL ACCOMODATION, PERRL - ENT Exam ENT Exam: Mucous Membranes Moist, Normal Exam - Neck Exam Neck Exam: Full ROM, Normal Inspection - Respiratory Exam Respiratory Exam: Clear to Ausculation Bilateral, NORMAL BREATHING PATTERN - Cardiovascular Exam Cardiovascular Exam: REGULAR RHYTHM, +S1, +S2 - GI/Abdominal Exam GI & Abdominal Exam: Soft, Normal Bowel Sounds - Exam Exam: Circumcision Additional comments: scrotal swelling improved, Foreskin improved was able to retract, none tender. - Extremities Exam Additional comments: Severe tenderness upon palpation, and movement of the LEFT arm and LEG / no difformity noted. - Back Exam Back Exam: NORMAL INSPECTION - Neurological Exam Neurological Exam: Alert, Awake, Oriented x3 - Psychiatric Exam Psychiatric exam: Normal Affect, Normal Mood - Skin Skin Exam: Dry, Intact, Normal Color, Warm Assessment and Plan - Assessment and Plan (Free Text) Assessment: Assessment: Pt is demented with PMH of Parkinson, and HTN, malignant renal tumor, with h/o nephrectomy done last year; Presented to ER with his family due to swelling of testicle and foreskin. All information were taken from family as patient was unable to respond to my questions. Family state that patient was seen in [facility] last week due to urinary retention. Urology was consulted, and suggested to arrange for placement of suprapubic catheter, which they failed to follow, Pt was discharged with Dwyer catheter, and nurses were coming to home to change it. in the past 3 days, his foreskin became swollen along with the testicle and they decided to bring him to [place] ER. U/S There are bilateral epididymal cysts and/or spermatoceles. Moderate size right-sided hydrocele Balanitis + UTI Improving Afebrile UA + leukocytosis, bacteria US + for hydrocele Blood culture + for enterococcus faecalis As urology recommendation: Remove Dwyer cath, retract foreskin Will apply Clotrimazole PRN Continue Rocephin 1mg day 3 Monitor for changes F/U urology recommendation Urine retention Proscar ordered. Pt was able to pass urine without Dwyer LEFT Extrimity pain Xray was done for Entire LEFT extremity Everything negative except for Osteoarthritis of CMC 1 Hypokalemia K 3.4 Start KCL 20mg Po HTN Chronic, controlled continue home medication Parkinson Chronic Continue home medication DVT prophylaxis Lovenox SC 40 SCD Code DNR/DNI <Gita Wild - Last Filed: 02/20/18 18:13> Objective - Vital Signs/Intake and Output Vital Signs (last 24 hours): Temp Pulse Resp BP Pulse Ox 98.9 F 88 20 137/69 94 L 02/20/18 17:02 02/20/18 17:02 02/20/18 17:02 02/20/18 17:02 02/20/18 17:02 - Medications Medications: Current Medications Aspirin (Ecotrin) 81 mg PO DAILY [facility] Last Admin: 02/20/18 08:16 Dose: 81 mg Cholecalciferol (Vitamin D) 1,000 intlu PO DAILY [facility] Last Admin: 02/20/18 08:15 Dose: 1,000 intlu Clonazepam (Klonopin) 0.[address] [facility] Clotrimazole (Lotrimin 1% Cream) 1 applic TOP BID [facility] Last Admin: 02/20/18 15:59 Dose: 1 applic Docusate Sodium (Colace) 100 mg PO BID [facility] Last Admin: 02/20/18 15:59 Dose: 100 mg Enoxaparin Sodium (Lovenox) 40 mg SC DAILY [facility]; Protocol Last Admin: 02/20/18 08:14 Dose: 40 mg Fenofibrate (Tricor) 145 mg PO DAILY [facility] Last Admin: 02/20/18 08:18 Dose: 145 mg Finasteride (Proscar) 5 mg PO DAILY [facility] Last Admin: 02/20/18 08:17 Dose: 5 mg Folic Acid (Folic Acid) 1 mg PO DAILY [facility] Last Admin: 02/20/18 08:17 Dose: 1 mg Ampicillin Sodium/Sulbactam (Sodium 1.5 gm/ Sodium Chloride) 100 mls @ 100 mls/hr IVPB Q6 [facility]; Protocol Last Admin: 02/20/18 15:48 Dose: 100 mls/hr Potassium Chloride/Dextrose/Sod Cl (Potassium Chl 20 Meq In D5-1/2ns) 1,000 mls @ 100 mls/hr IV .Q10H [facility] Stop: 02/21/18 17:34 Metoprolol Tartrate (Lopressor) 12.5 mg PO Q12 [facility] Last Admin: 02/20/18 08:15 Dose: 12.5 mg Montelukast Sodium (Singulair) 10 mg PO DAILY [facility] Last Admin: 02/20/18 08:18 Dose: 10 mg Pantoprazole Sodium (Protonix Ec Tab) 40 mg PO DAILY [facility] Last Admin: 02/20/18 08:17 Dose: 40 mg Quetiapine Fumarate (Seroquel) 50 mg PO HS [facility] Tamsulosin HCl (Flomax) 0.8 mg PO DAILY [facility] Last Admin: 02/20/18 08:16 Dose: 0.8 mg Tramadol HCl (Ultram) 50 mg PO Q6 PRN PRN Reason: Pain, severe (8-10) - Labs Labs: 02/20/18 05:40 02/20/18 05:40 Attending/Attestation - Attestation I have personally seen and examined this patient.: Yes I have fully participated in the care of the patient.: Yes I have reviewed all pertinent clinical information, including history, physical exam and plan: Yes Notes (Text): Acute Kidney Injury due to Urinary Retention and UTI on CKD Stage III improving Dwyer Cath d/c today , will cont to monitor for retention d/c IV Ceftriaxone and change to IV Unasyn ( Enterococcus) Extremity Pain noted pain when extremities moved xrays done to r/o fracture as pt has hx of fall
--- NOTE | 2018-02-20 13:49 | RAD ---
Date of service: 02/20/2018 PROCEDURE: Left Wrist Radiographs. HISTORY: HX OF FALL, PAIN COMPARISON: None. FINDINGS: BONES: Normal. No fracture. JOINTS: Osteoarthritis at CMC 1. The remaining joint spaces and articular surfaces are preserved. SOFT TISSUES: Normal. OTHER FINDINGS: None. IMPRESSION: Osteoarthritis of CMC 1.
--- NOTE | 2018-02-20 13:51 | RAD ---
Date of service: 02/20/2018 PROCEDURE: Radiographs of the left elbow. HISTORY: HX OF FALL, PAIN COMPARISON: No prior. FINDINGS: BONES: Examination technically limited due to inability of patient to cooperate. No true lateral view is submitted. No fracture identified. JOINTS: Normal. No osteoarthritis. SOFT TISSUES: Normal. JOINT EFFUSION: None. OTHER FINDINGS: None IMPRESSION: Normal limited examination.
--- NOTE | 2018-02-20 13:52 | RAD ---
Date of service: 02/20/2018 PROCEDURE: Radiographs of the Left Shoulder HISTORY: HX OF FALL, TENDERNESS COMPARISON: No prior. FINDINGS: BONES: Normal. No fracture. JOINTS: Normal. Glenohumeral and acromioclavicular joints preserved. No osteoarthritis. SOFT TISSUES: Normal. OTHER FINDINGS: None. IMPRESSION: Normal radiographs of the left shoulder.
--- NOTE | 2018-02-20 14:42 | RAD ---
Date of service: 02/20/2018 PROCEDURE: Radiographs of the pelvis. HISTORY: PAIN, HX OF FALL COMPARISON: February 20, 2018 left hip reported separately FINDINGS: BONES: Pelvic Bones: Unremarkable. Hips: Mild degenerative changes are approximately symmetrical. JOINTS: Sacroiliac Joints: Unremarkable. Pubic Symphysis: Unremarkable. OTHER FINDINGS: None. IMPRESSION: No significant or acute findings to account for/ related to the clinical presentation.
[2018-02-20] MEDS: Potassium Ch 20mEq in D5-1/2NS 1,000 ML IV SCH ×2 (21:38→21:42)
[2018-02-20] MEDS: Potassium Chloride 20 mEq/15 ml LIQ UD PO ONE ×2 (21:41)
[2018-02-21] MEDS: Potassium Ch 20mEq in D5-1/2NS 1,000 ML IV SCH ×2 (04:00→13:00)
[2018-02-21 06:28] LABS: HEMOGLOBIN 12.3 g/dL (12.0-18.0); MEAN CELL VOLUME 95.4 fl (80.0-94.0); MEAN CORPUSCULAR HEMOGLOBIN 30.5 pg (27.0-31.0); RBC 4.02 Mil/uL (4.40-5.90); RED CELL DISTRIBUTION WIDTH 13.2 % (11.5-14.5)
[2018-02-21 06:41] LABS: BLOOD UREA NITROGEN 20 mg/dl (9-20); CALCIUM 9.5 mg/dL (8.4-10.2); GFR NON-AFRICAN AMERICAN 59
[2018-02-21] MEDS: Enoxaparin 40 mg Syringe SC SCH (09:27)
[2018-02-21] MEDS: Pantoprazole 40 mg EC Tab PO SCH (09:30)
[2018-02-21] MEDS: Cholecalciferol 1,000 INTLU TAB PO SCH (09:30)
--- NOTE | 2018-02-21 10:42 | CP.PCM.PN ---
Subjective - Date & Time of Evaluation Date of Evaluation: 02/21/18 Time of Evaluation: 10:34 - Subjective Subjective: PT seen and examined at bed, Pt is does not respond to command due to dementia. Pt had a fever of 100.4 at midnight, otherwise no new event. Nurse state patient was passing urine frequently. Otherwise no sign of nausea, and no vomiting. Left arm alcohol still operator to touch. Objective - Vital Signs/Intake and Output Vital Signs (last 24 hours): Temp Pulse Resp BP Pulse Ox 97 F L 73 20 130/62 98 02/21/18 08:10 02/21/18 08:10 02/21/18 08:10 02/21/18 08:10 02/21/18 08:10 - Medications Medications: Current Medications Acetaminophen (Tylenol 325mg Tab) 650 mg PO Q6 PRN PRN Reason: Fever >100.4 F Last Admin: 02/21/18 00:31 Dose: 650 mg Aspirin (Ecotrin) 81 mg PO DAILY [facility] Last Admin: 02/21/18 09:30 Dose: 81 mg Cholecalciferol (Vitamin D) 1,000 intlu PO DAILY [facility] Last Admin: 02/21/18 09:30 Dose: 1,000 intlu Clonazepam (Klonopin) 0.25 mg PO HS [facility] Last Admin: 02/20/18 21:39 Dose: 0.25 mg Clotrimazole (Lotrimin 1% Cream) 1 applic TOP BID [facility] Last Admin: 02/21/18 09:31 Dose: 1 applic Docusate Sodium (Colace) 100 mg PO BID [facility] Last Admin: 02/21/18 09:27 Dose: 100 mg Enoxaparin Sodium (Lovenox) 40 mg SC DAILY [facility]; Protocol Last Admin: 02/21/18 09:27 Dose: 40 mg Fenofibrate (Tricor) 145 mg PO DAILY [facility] Last Admin: 02/21/18 09:28 Dose: 145 mg Finasteride (Proscar) 5 mg PO DAILY [facility] Last Admin: 02/21/18 09:28 Dose: 5 mg Folic Acid (Folic Acid) 1 mg PO DAILY [facility] Last Admin: 02/21/18 09:28 Dose: 1 mg Ampicillin Sodium/Sulbactam (Sodium 1.5 gm/ Sodium Chloride) 100 mls @ 100 mls/hr IVPB Q6 [facility]; Protocol Last Admin: 02/21/18 09:26 Dose: 100 mls/hr Potassium Chloride/Dextrose/Sod Cl (Potassium Chl 20 Meq In D5-1/2ns) 1,000 mls @ 100 mls/hr IV .Q10H [facility] Stop: 02/21/18 17:34 Last Admin: 02/21/18 04:00 Dose: Not Given Metoprolol Tartrate (Lopressor) 12.5 mg PO Q12 [facility] Last Admin: 02/21/18 09:30 Dose: 12.5 mg Montelukast Sodium (Singulair) 10 mg PO DAILY [facility] Last Admin: 02/21/18 09:30 Dose: 10 mg Pantoprazole Sodium (Protonix Ec Tab) 40 mg PO DAILY [facility] Last Admin: 02/21/18 09:30 Dose: 40 mg Quetiapine Fumarate (Seroquel) 50 mg PO HS [facility] Last Admin: 02/20/18 21:34 Dose: 50 mg Tamsulosin HCl (Flomax) 0.8 mg PO DAILY [facility] Last Admin: 02/21/18 09:29 Dose: 0.8 mg Tramadol HCl (Ultram) 50 mg PO Q6 PRN PRN Reason: Pain, severe (8-10) - Labs Labs: 02/21/18 05:30 02/21/18 05:30 - Constitutional Appears: Well, Non-toxic, No Acute Distress - Head Exam Head Exam: ATRAUMATIC, NORMAL INSPECTION, NORMOCEPHALIC - Eye Exam Eye Exam: EOMI, Normal appearance, PERRL Pupil Exam: NORMAL ACCOMODATION, PERRL - ENT Exam ENT Exam: Mucous Membranes Moist, Normal Exam - Neck Exam Neck Exam: Normal Inspection - Respiratory Exam Respiratory Exam: Clear to Ausculation Bilateral, NORMAL BREATHING PATTERN - Cardiovascular Exam Cardiovascular Exam: REGULAR RHYTHM, +S1, +S2 - GI/Abdominal Exam GI & Abdominal Exam: Soft, Normal Bowel Sounds. absent: Tenderness - Exam Exam: Circumcision Additional comments: Foreskin retractable, swelling improving - Extremities Exam Extremities Exam: absent: Calf Tenderness, Pedal Edema Additional comments: Tenderness upon palpation of the wrist. - Neurological Exam Neurological Exam: Awake - Skin Skin Exam: Dry, Intact, Normal Color, Warm Assessment and Plan - Assessment and Plan (Free Text) Assessment: Assessment: Pt is demented with PMH of Parkinson, and HTN, malignant renal tumor, with h/o nephrectomy done last year; Presented to ER with his family due to swelling of testicle and foreskin. All information were taken from family as patient was unable to respond to my questions. Family state that patient was seen in [facility] last week due to urinary retention. Urology was consulted, and suggested to arrange for placement of suprapubic catheter, which they failed to follow, Pt was discharged with Dwyer catheter, and nurses were coming to home to change it. in the past 3 days, his foreskin became swollen along with the testicle and they decided to bring him to [facility]. U/S There are bilateral epididymal cysts and/or spermatoceles. Moderate size right-sided hydrocele UTI Spiked fever 100.4 00:14 02/21/18 UA + leukocytosis, bacteria US + for hydrocele cath removed, patient void freely Will apply Clotrimazole PRN Continue Rocephin 1mg day 4 F/U urology recommendation Urine retention Continue Proscar Continue flomax 0.8 Qd Pt is passing urine without difficulty Bladder us/ post void residual ordered. LEFT Extrimity pain no change Xray was done for Entire LEFT extremity Everything negative except for Osteoarthritis of CMC 1 Hypokalemia resolved HTN Chronic, controlled Continue home medication Parkinson Chronic Continue home medication DVT prophylaxis Lovenox SC 40 SCD Code DNR/DNI
--- NOTE | 2018-02-21 10:45 | US ---
Date of service: 02/20/2018 PROCEDURE: Ultrasound urinary bladder. HISTORY: TENDER COMPARISON: None TECHNIQUE: Standard protocol for this study/examination. FINDINGS: Urinary bladder assessment: Prevoid volume: 170.82 ml Postvoid residual: Nondiagnostic study, the patient could not void. Intrinsic, mural, perivesical abnormalities: None Ureteral jets: Not visible. IMPRESSION: Low capacitance urinary bladder. No gross lesions identified within the bladder. Study limited by patient's inability to void. Concordant findings (preliminary report) provided by [facility].
--- NOTE | 2018-02-21 10:51 | US ---
Date of service: 02/20/2018 HISTORY: TENDER COMPARISON: None. TECHNIQUE: Sonographic evaluation of the abdomen. FINDINGS: LIVER: Measures 15.0 cm. Patent portal vein. Portal venous flow: Hepatopetal. Unremarkable echogenicity of the liver parenchyma. No mass. No intrahepatic bile duct dilatation. GALLBLADDER: Cholelithiasis. Negative study for gallbladder wall thickening, pericholecystic fluid, sonographic Edward's sign. COMMON BILE DUCT: Measures 3.40 mm. No stones. No dilatation. PANCREAS: Obscured by overlying bowel gas. Non diagnostic assessment of the pancreas. RIGHT KIDNEY: Measures 6.1 x 10.7cm. Normal echogenicity. No calculus, mass, or hydronephrosis. SPLEEN: Normal in size and contour. No mass. AORTA: No aneurysmal dilatation. IVC: Unremarkable. OTHER FINDINGS: None. IMPRESSION: Cholelithiasis. No sonographic evidence of acute cholecystitis.
--- NOTE | 2018-02-21 14:57 | CP.PCM.DIS ---
<Santi Mejia - Last Filed: 02/21/18 14:43> Provider - Provider Date of Admission: 02/18/18 12:45 Attending physician: Britton Kaur MD Time Spent in preparation of Discharge (in minutes): 20 Diagnosis - Discharge Diagnosis (1) Urinary tract infection Status: Acute (2) Altered mental status Status: Chronic (3) Dementia Status: Chronic Hospital Course - Lab Results Lab Results: Micro Results 02/18/18 10:20 Blood Blood Culture - Preliminary NO GROWTH AFTER 3 DAYS 02/18/18 10:15 Urine Urine Culture - Final Enterococcus Faecalis Most Recent Lab Values WBC 11.0 K/uL (4.8-10.8) H 02/21/18 05:30 RBC 4.02 Mil/uL (4.40-5.90) L 02/21/18 05:30 Hgb 12.3 g/dL (12.0-18.0) 02/21/18 05:30 Hct 38.4 % (35.0-51.0) 02/21/18 05:30 MCV 95.4 fl (80.0-94.0) H 02/21/18 05:30 MCH 30.5 pg (27.0-31.0) 02/21/18 05:30 MCHC 32.0 g/dL (33.0-37.0) L 02/21/18 05:30 RDW 13.2 % (11.5-14.5) 02/21/18 05:30 Plt Count 251 K/uL (130-400) 02/21/18 05:30 MPV 8.5 fl (7.2-11.7) 02/19/18 05:40 Neut % (Auto) 69.8 % (50.0-75.0) 02/19/18 05:40 Lymph % (Auto) 17.1 % (20.0-40.0) L 02/19/18 05:40 [place] % (Auto) 7.7 % (0.0-10.0) 02/19/18 05:40 Eos % (Auto) 4.7 % (0.0-4.0) H 02/19/18 05:40 Baso % (Auto) 0.7 % (0.0-2.0) 02/19/18 05:40 Neut # (Auto) 6.2 K/uL (1.8-7.0) 02/19/18 05:40 Lymph # (Auto) 1.5 K/uL (1.0-4.3) 02/19/18 05:40 [place] # (Auto) 0.7 K/uL (0.0-0.8) 02/19/18 05:40 Eos # (Auto) 0.4 K/uL (0.0-0.7) 02/19/18 05:40 Baso # (Auto) 0.1 K/uL (0.0-0.2) 02/19/18 05:40 pO2 32 mm/Hg (30-55) 02/18/18 10:11 VBG pH 7.42 (7.32-7.43) 02/18/18 10:11 VBG pCO2 42 mmHg (40-60) 02/18/18 10:11 VBG HCO3 25.9 mmol/L 02/18/18 10:11 VBG Total CO2 28.5 mmol/L (22-28) H 02/18/18 10:11 VBG O2 Sat (Calc) 71.0 % (40-65) H 02/18/18 10:11 VBG Base Excess 2.4 mmol/L (0.0-2.0) H 02/18/18 10:11 VBG Potassium 3.4 mmol/L (3.6-5.2) L 02/18/18 10:11 Sodium 139.0 mmol/L (132-148) 02/18/18 10:11 Chloride 105.0 mmol/L (98-107) 02/18/18 10:11 Glucose 123 mg/dL (75-110) H 02/18/18 10:11 Lactate 0.8 mmol/L (0.7-2.1) 02/18/18 10:11 FiO2 21.0 % 02/18/18 10:11 Sodium 143 mmol/l (132-148) 02/21/18 05:30 Potassium 4.2 MMOL/L (3.6-5.0) 02/21/18 05:30 Chloride 112 mmol/L (98-107) H 02/21/18 05:30 Carbon Dioxide 24 mmol/L (22-30) 02/21/18 05:30 Anion Gap 11 (10-20) 02/21/18 05:30 BUN 20 mg/dl (9-20) 02/21/18 05:30 Creatinine 1.2 mg/dl (0.8-1.5) 02/21/18 05:30 Est GFR ( Amer) > 60 02/21/18 05:30 Est GFR (Non-Af Amer) 59 02/21/18 05:30 POC Glucose (mg/dL) 84 mg/dL (65-110) 02/19/18 17:42 Random Glucose 120 mg/dL (75-110) H 02/21/18 05:30 Calcium 9.5 mg/dL (8.4-10.2) 02/21/18 05:30 Total Bilirubin 0.6 mg/dl (0.2-1.3) 02/18/18 10:20 AST 21 U/L (17-59) 02/18/18 10:20 ALT 16 U/L (21-72) L 02/18/18 10:20 Alkaline Phosphatase 42 U/L (38-126) 02/18/18 10:20 Troponin I < 0.0120 ng/mL (0.00-0.120) 02/18/18 10:20 Total Protein 6.4 G/DL (6.3-8.2) 02/18/18 10:20 Albumin 3.4 g/dL (3.5-5.0) L 02/18/18 10:20 Globulin 3.0 gm/dL (2.2-3.9) 02/18/18 10:20 Albumin/Globulin Ratio 1.1 (1.0-2.1) 02/18/18 10:20 Venous Blood Potassium 3.4 mmol/L (3.6-5.2) L 02/18/18 10:11 Urine Color Yellow (YELLOW) 02/18/18 10:15 Urine Clarity Cloudy (Clear) 02/18/18 10:15 Urine pH 5.0 (5.0-8.0) 02/18/18 10:15 Ur Specific [place] 1.019 (1.003-1.030) 02/18/18 10:15 Urine Protein 30 mg/dL (NEGATIVE) 02/18/18 10:15 Urine Glucose (UA) Neg mg/dL (Normal) 02/18/18 10:15 Urine Ketones Negative mg/dL (NEGATIVE) 02/18/18 10:15 Urine Blood Small (NEGATIVE) 02/18/18 10:15 Urine Nitrate Negative (NEGATIVE) 02/18/18 10:15 Urine Bilirubin Negative (NEGATIVE) 02/18/18 10:15 Urine Urobilinogen 0.2-1.0 mg/dL (0.2-1.0) 02/18/18 10:15 Ur Leukocyte Esterase Large Jose/uL (Negative) 02/18/18 10:15 Urine RBC (Auto) 22 /hpf (0-3) H 02/18/18 10:15 Urine Microscopic WBC 72 /hpf (0-5) H 02/18/18 10:15 Ur Squamous Epith Cells 1 /hpf (0-5) 02/18/18 10:15 Calcium Oxalate Crystal Rare /hpf (<OCC) 02/18/18 10:15 Urine Bacteria Rare (<OCC) 02/18/18 10:15 Hyaline Casts 0-2 /hpf (0-2) 02/18/18 10:15 Urine Yeast (Budding) Few /hpf (NEGATIVE) H 02/18/18 10:15 - Hospital Course Hospital Course: Pt is demented with PMH of parkinson, and HTN, malignant renal tumor, will be admitted for treatment of b/l epididymal cyst, hydrocele, UTI and balanitis. UC: was positive for Enterococcus Faecalis. Pt was treated with Rocephin, inflammation of foreskin resolved and was retractable. Discussed with Urulogy Dr. Morales, Recommended to increase Flomax to 0.8mg add Proscar, dc Dwyer catheter and follow up with bladder scanner. Pt seen and examined today. No acute event overnight. Pt spiked a low grade feve r of 100.4 today at 00:00, otherwise no change. Foreskin fully retractable, less swollen, catheter removed, Nurse state patient was passing urine all night. Bladder scan was done today post-void and was 315ml. As per Urulogy patient does not need Dwyer cath right now. Patient will be discharged to TCU for further Abx administration. Dr. Morales agree to follow up with patient in TCU. *Pt was complaining of LEFT wrist pain, xray done showed osteoarthritis negative for fracture. *Pt have received all home medication during stay in hospital. Pt chart reviewed, vitals stable, patient physical exam improved. Pt can be discharged to TCU to further abx administration. Discharge Exam - Head Exam Head Exam: ATRAUMATIC, NORMAL INSPECTION, NORMOCEPHALIC - Eye Exam Eye Exam: EOMI, Normal appearance, PERRL Pupil Exam: NORMAL ACCOMODATION, PERRL - Respiratory Exam Respiratory Exam: Clear to PA & Lateral, NORMAL BREATHING PATTERN, UNREMARKABLE - Cardiovascular Exam Cardiovascular Exam: REGULAR RHYTHM, +S1, +S2 - GI/Abdominal Exam GI & Abdominal Exam: Normal Bowel Sounds, Unremarkable - Exam Exam: Circumcision - Extremities Exam Additional comments: Mild tenderness on LEFT wrist - Skin Skin Exam: Dry, Intact, Normal Color, Warm Discharge Plan - Discharge Medications Prescriptions: Ampicillin Sodium/Sulbactam Na [Ampicillin-Sulbactam 3 gm Vial] 3 gm IVPB Q8 7 Days vial - Follow Up Plan Condition: FAIR Disposition: REHAB FACILITY/REHAB UNIT Instructions: Urinary Tract Infections in Adults, Altered Mental Status (DC) Additional Instructions: follow up with primary MD 1 week Referrals: Naif Morales MD [Medical Doctor] - <Gita Wild - Last Filed: 02/21/18 17:16> Provider - Provider Date of Admission: 02/18/18 12:45 Attending physician: Britton Kaur MD Hospital Course - Lab Results Lab Results: Micro Results 02/18/18 10:20 Blood Blood Culture - Preliminary NO GROWTH AFTER 3 DAYS 02/18/18 10:15 Urine Urine Culture - Final Enterococcus Faecalis Most Recent Lab Values WBC 11.0 K/uL (4.8-10.8) H 02/21/18 05:30 RBC 4.02 Mil/uL (4.40-5.90) L 02/21/18 05:30 Hgb 12.3 g/dL (12.0-18.0) 02/21/18 05:30 Hct 38.4 % (35.0-51.0) 02/21/18 05:30 MCV 95.4 fl (80.0-94.0) H 02/21/18 05:30 MCH 30.5 pg (27.0-31.0) 02/21/18 05:30 MCHC 32.0 g/dL (33.0-37.0) L 02/21/18 05:30 RDW 13.2 % (11.5-14.5) 02/21/18 05:30 Plt Count 251 K/uL (130-400) 02/21/18 05:30 MPV 8.5 fl (7.2-11.7) 02/19/18 05:40 Neut % (Auto) 69.8 % (50.0-75.0) 02/19/18 05:40 Lymph % (Auto) 17.1 % (20.0-40.0) L 02/19/18 05:40 [place] % (Auto) 7.7 % (0.0-10.0) 02/19/18 05:40 Eos % (Auto) 4.7 % (0.0-4.0) H 02/19/18 05:40 Baso % (Auto) 0.7 % (0.0-2.0) 02/19/18 05:40 Neut # (Auto) 6.2 K/uL (1.8-7.0) 02/19/18 05:40 Lymph # (Auto) 1.5 K/uL (1.0-4.3) 02/19/18 05:40 [place] # (Auto) 0.7 K/uL (0.0-0.8) 02/19/18 05:40 Eos # (Auto) 0.4 K/uL (0.0-0.7) 02/19/18 05:40 Baso # (Auto) 0.1 K/uL (0.0-0.2) 02/19/18 05:40 pO2 32 mm/Hg (30-55) 02/18/18 10:11 VBG pH 7.42 (7.32-7.43) 02/18/18 10:11 VBG pCO2 42 mmHg (40-60) 02/18/18 10:11 VBG HCO3 25.9 mmol/L 02/18/18 10:11 VBG Total CO2 28.5 mmol/L (22-28) H 02/18/18 10:11 VBG O2 Sat (Calc) 71.0 % (40-65) H 02/18/18 10:11 VBG Base Excess 2.4 mmol/L (0.0-2.0) H 02/18/18 10:11 VBG Potassium 3.4 mmol/L (3.6-5.2) L 02/18/18 10:11 Sodium 139.0 mmol/L (132-148) 02/18/18 10:11 Chloride 105.0 mmol/L (98-107) 02/18/18 10:11 Glucose 123 mg/dL (75-110) H 02/18/18 10:11 Lactate 0.8 mmol/L (0.7-2.1) 02/18/18 10:11 FiO2 21.0 % 02/18/18 10:11 Sodium 143 mmol/l (132-148) 02/21/18 05:30 Potassium 4.2 MMOL/L (3.6-5.0) 02/21/18 05:30 Chloride 112 mmol/L (98-107) H 02/21/18 05:30 Carbon Dioxide 24 mmol/L (22-30) 02/21/18 05:30 Anion Gap 11 (10-20) 02/21/18 05:30 BUN 20 mg/dl (9-20) 02/21/18 05:30 Creatinine 1.2 mg/dl (0.8-1.5) 02/21/18 05:30 Est GFR ( Amer) > 60 02/21/18 05:30 Est GFR (Non-Af Amer) 59 02/21/18 05:30 POC Glucose (mg/dL) 84 mg/dL (65-110) 02/19/18 17:42 Random Glucose 120 mg/dL (75-110) H 02/21/18 05:30 Calcium 9.5 mg/dL (8.4-10.2) 02/21/18 05:30 Total Bilirubin 0.6 mg/dl (0.2-1.3) 02/18/18 10:20 AST 21 U/L (17-59) 02/18/18 10:20 ALT 16 U/L (21-72) L 02/18/18 10:20 Alkaline Phosphatase 42 U/L (38-126) 02/18/18 10:20 Troponin I < 0.0120 ng/mL (0.00-0.120) 02/18/18 10:20 Total Protein 6.4 G/DL (6.3-8.2) 02/18/18 10:20 Albumin 3.4 g/dL (3.5-5.0) L 02/18/18 10:20 Globulin 3.0 gm/dL (2.2-3.9) 02/18/18 10:20 Albumin/Globulin Ratio 1.1 (1.0-2.1) 02/18/18 10:20 Venous Blood Potassium 3.4 mmol/L (3.6-5.2) L 02/18/18 10:11 Urine Color Yellow (YELLOW) 02/18/18 10:15 Urine Clarity Cloudy (Clear) 02/18/18 10:15 Urine pH 5.0 (5.0-8.0) 02/18/18 10:15 Ur Specific [place] 1.019 (1.003-1.030) 02/18/18 10:15 Urine Protein 30 mg/dL (NEGATIVE) 02/18/18 10:15 Urine Glucose (UA) Neg mg/dL (Normal) 02/18/18 10:15 Urine Ketones Negative mg/dL (NEGATIVE) 02/18/18 10:15 Urine Blood Small (NEGATIVE) 02/18/18 10:15 Urine Nitrate Negative (NEGATIVE) 02/18/18 10:15 Urine Bilirubin Negative (NEGATIVE) 02/18/18 10:15 Urine Urobilinogen 0.2-1.0 mg/dL (0.2-1.0) 02/18/18 10:15 Ur Leukocyte Esterase Large Jose/uL (Negative) 02/18/18 10:15 Urine RBC (Auto) 22 /hpf (0-3) H 02/18/18 10:15 Urine Microscopic WBC 72 /hpf (0-5) H 02/18/18 10:15 Ur Squamous Epith Cells 1 /hpf (0-5) 02/18/18 10:15 Calcium Oxalate Crystal Rare /hpf (<OCC) 02/18/18 10:15 Urine Bacteria Rare (<OCC) 02/18/18 10:15 Hyaline Casts 0-2 /hpf (0-2) 02/18/18 10:15 Urine Yeast (Budding) Few /hpf (NEGATIVE) H 02/18/18 10:15 Attending/Attestation - Attestation I have personally seen and examined this patient.: Yes I have fully participated in the care of the patient.: Yes I have reviewed all pertinent clinical information, including history, physical exam and plan: Yes Notes (Text): UTI Enterococcus , Dwyer Catheter related ( pt came with Dwyer Cath from home ) - will d/c pt to TCU for 1 more week of IV Unasyn - discussed case with Dr Morales - post void residual ( 315ml ) - he rec to keep Dwyer out and cont Floiamx 0.8 mg daily Dementia with Behavioral changes cont Seroquel
--- NOTE | 2018-02-21 15:03 | US ---
Date of service: 02/21/2018 PROCEDURE: Urinary bladder ultrasound HISTORY: post void bladder scan COMPARISON: February 20, 2018. TECHNIQUE: Standard protocol for this study/examination. FINDINGS: Calculated postvoid residual 315.54 mL. No focal bladder wall abnormalities detected. IMPRESSION: Postvoid residual 315.54 m Unremarkable urinary bladder wall.
[2018-02-21 16:30] VITALS: BP 131/70; PULSE 81; TEMP 97.8; O2SAT 99
== END 2018-02-21 20:45 | DRG 699 ==
LOC: H.ER 09:30 → H.ERHOLD 12:45 → H.MEDSURG1 14:10
DX: T83.511A Infection and inflammatory reaction due to indwelling urethral catheter, initial encounter (principal); N17.9 Acute kidney failure, unspecified; F02.81 Dementia in other diseases classified elsewhere, unspecified severity, with behavioral disturbance; N39.0 Urinary tract infection, site not specified; B95.2 Enterococcus as the cause of diseases classified elsewhere; N48.1 Balanitis; G31.83 Neurocognitive disorder with Lewy bodies; E87.6 Hypokalemia; N18.3 Chronic kidney disease, stage 3 (moderate); I12.9 Hypertensive chronic kidney disease with stage 1 through stage 4 chronic kidney disease, or unspecified chronic kidney disease; N43.3 Hydrocele, unspecified; R33.8 Other retention of urine; M19.032 Primary osteoarthritis, left wrist; Y84.6 Urinary catheterization as the cause of abnormal reaction of the patient, or of later complication, without mention of misadventure at the time of the procedure; Z66 Do not resuscitate; Z90.5 Acquired absence of kidney; Z85.528 Personal history of other malignant neoplasm of kidney; Z87.440 Personal history of urinary (tract) infections; Z79.82 Long term (current) use of aspirin; Y92.009 Unspecified place in unspecified non-institutional (private) residence as the place of occurrence of the external cause

== ENCOUNTER 2018-02-21 16:03 | Inpatient (IN) | payer OTHER ==
--- NOTE | 2018-02-22 07:24 | CP.PCM.HP ---
<Santi Mejia - Last Filed: 02/22/18 09:59> History of Present Illness - History of Present Illness History of Present Illness: Pt is demented with PMH of Parkinson, and HTN, malignant renal tumor, with h/o nephrectomy done last year; Admitted to TCU to Complete IV ABx for UTI (Enterococcus Faecalis) and physical therapy. PT have no acute distress. Pt is does have dementia and he wax and wane. PMD: Dr Parrish Allergy: none Medication: see medication list PMH Parkinson, Htn, Renal tumor PSH: nephrectomy Social: no smoke,drink or drug use, live with ROS: unable to take due to patient mentation Present on Admission - Present on Admission Any Indicators Present on Admission: No Review of Systems - Review of Systems Systems not reviewed;Unavailable: Dementia Past Patient History - Past Social History Smoking Status: Never Smoked - CARDIAC Hx Cardiac Disorders: Yes Hx Cardia Arrhythmia: Yes Hx Hypertension: Yes - PULMONARY Hx Respiratory Disorders: No - NEUROLOGICAL Hx Neurological Disorder: Yes Hx Dementia: Yes - HEENT Hx HEENT Problems: Yes Other/Comment: Hard of hearing - RENAL Hx Chronic Kidney Disease: Yes - ENDOCRINE/METABOLIC Hx Endocrine Disorders: No - HEMATOLOGICAL/ONCOLOGICAL Hx Blood Disorders: No Hx AIDS: No Hx Human Immunodeficiency Virus (HIV): No - INTEGUMENTARY Hx Dermatological Problems: No - MUSCULOSKELETAL/RHEUMATOLOGICAL Hx Musculoskeletal Disorders: Yes Hx Falls: Yes - GASTROINTESTINAL Hx Gastrointestinal Disorders: No - GENITOURINARY/GYNECOLOGICAL Hx Genitourinary Disorders: Yes Hx Urinary Tract Infection: Yes - PSYCHIATRIC Hx Psychophysiologic Disorder: No Hx Substance Use: No - SURGICAL HISTORY Hx Surgeries: Yes Other/Comment: Nephrectomy secondary to malignant left renal tumor (2017) - ANESTHESIA Hx Anesthesia: Yes Hx Anesthesia Reactions: No Meds Allergies/Adverse Reactions: Allergies Allergy/AdvReac Type Severity Reaction Status Date / Time No Known Allergies Allergy Verified 02/18/18 09:51 Physical Exam - Constitutional Appears: Well, Non-toxic, No Acute Distress - Head Exam Head Exam: ATRAUMATIC, NORMAL INSPECTION, NORMOCEPHALIC - Eye Exam Eye Exam: EOMI, Normal appearance, PERRL Pupil Exam: NORMAL ACCOMODATION, PERRL - ENT Exam ENT Exam: Mucous Membranes Moist, Normal Exam - Neck Exam Neck exam: Positive for: Normal Inspection - Respiratory Exam Respiratory Exam: Clear to Auscultation Bilateral, NORMAL BREATHING PATTERN - Cardiovascular Exam Cardiovascular Exam: REGULAR RHYTHM, +S1, +S2 - GI/Abdominal Exam GI & Abdominal Exam: Normal Bowel Sounds, Soft - Extremities Exam Extremities exam: Positive for: normal inspection. Negative for: calf tenderness - Back Exam Back exam: NORMAL INSPECTION - Skin Skin Exam: Dry, Intact, Normal Color, Warm Assessment & Plan - Assessment and Plan (Free Text) Assessment: Pt is demented with PMH of Parkinson, and HTN, malignant renal tumor, with h/o nephrectomy done last year; Admitted to TCU to Complete IV ABx for UTI (Enterococcus Faecalis) and physical therapy. UTI WIll continue IV abx Unasyn Continue Physical therapy Follow up with Dr. Guevara recommendation ( ID) Follow up Dr Morales recommendation ( Urulogist) Urine retention Proscar Flomax 0.8 HTN Chronic, controlled continue home medication Parkinson Chronic Continue home medication DVT prophylaxis Lovenox SC 40 SCD <Wild,Gita Real - Last Filed: 02/22/18 16:59> Results - Vital Signs Recent Vital Signs: Last Vital Signs Temp 98.2 F 02/22/18 15:52 Pulse 88 02/22/18 15:52 Resp 20 02/22/18 15:52 BP 122/69 02/22/18 15:52 Pulse Ox 99 02/22/18 15:52 Attending/Attestation - Attestation I have personally seen and examined this patient.: Yes I have fully participated in the care of the patient.: Yes I have reviewed all pertinent clinical information: Yes
[2018-02-22 08:25] VITALS: RESP 20
[2018-02-22] MEDS ORDERED: CLONAZEPAM 0.25 MG PO SCH (09:00)
[2018-02-22] MEDS ORDERED: FENOFIBRATE MICRONIZED 134 MG PO SCH (09:00)
[2018-02-22] MEDS: Cholecalciferol 1,000 INTLU TAB PO SCH (09:02)
[2018-02-22] MEDS: Magnesium Oxide 400 mg Tab UD PO SCH (09:04)
[2018-02-22] MEDS: Enoxaparin 40 mg Syringe SC SCH (11:12)
[2018-02-22] MEDS ORDERED: MELATONIN 3 MG PO SCH (22:00)
[2018-02-23] MEDS: Enoxaparin 40 mg Syringe SC SCH (08:06)
[2018-02-23] MEDS: Cholecalciferol 1,000 INTLU TAB PO SCH (08:09)
[2018-02-23] MEDS: Magnesium Oxide 400 mg Tab UD PO SCH (08:10)
[2018-02-24] MEDS: Enoxaparin 40 mg Syringe SC SCH (08:12)
[2018-02-24] MEDS: Magnesium Oxide 400 mg Tab UD PO SCH (08:17)
[2018-02-24] MEDS: Cholecalciferol 1,000 INTLU TAB PO SCH (08:18)
[2018-02-25] MEDS: Enoxaparin 40 mg Syringe SC SCH (08:01)
[2018-02-25] MEDS: Cholecalciferol 1,000 INTLU TAB PO SCH (08:03)
[2018-02-25] MEDS: Magnesium Oxide 400 mg Tab UD PO SCH (08:03)
[2018-02-26] MEDS: Enoxaparin 40 mg Syringe SC SCH (08:30)
[2018-02-26] MEDS: Magnesium Oxide 400 mg Tab UD PO SCH (08:32)
[2018-02-26] MEDS: Cholecalciferol 1,000 INTLU TAB PO SCH (08:33)
[2018-02-27] MEDS: Cholecalciferol 1,000 INTLU TAB PO SCH (08:13)
[2018-02-27] MEDS: Enoxaparin 40 mg Syringe SC SCH (08:14)
[2018-02-27] MEDS: Magnesium Oxide 400 mg Tab UD PO SCH (08:14)
--- NOTE | 2018-02-27 12:17 | CP.PCM.PN ---
Subjective - Date & Time of Evaluation Date of Evaluation: 02/27/18 Time of Evaluation: 12:15 - Subjective Subjective: pt doing well no complaints at this time denies cp sob n/v/c/d hd stable nad Objective - Vital Signs/Intake and Output Vital Signs (last 24 hours): Temp Pulse Resp BP Pulse Ox 98.0 F 80 20 110/56 L 97 02/27/18 08:14 02/27/18 08:14 02/27/18 08:14 02/27/18 08:15 02/27/18 08:14 Vitals Reviewed GEN: WDWN, alert, cooperative HEENT: NCAT, PERRL, EOMI HEART: RRR, +S1S2, NO MRG LUNG: CTAB, NO WRR ABD: soft, NT, ND, No HSM, No masses EXT: normal pedal pulses NEURO: awake, alert SKIN: warm, dry PSYCH: normal mood, normal affect - Medications Medications: Current Medications Aspirin (Ecotrin) 81 mg PO DAILY [facility] Last Admin: 02/27/18 08:13 Dose: 81 mg Carbidopa/Levodopa (Sinemet) 0.5 tab PO Q12 [facility] Last Admin: 02/27/18 08:13 Dose: 0.5 tab Cholecalciferol (Vitamin D) 1,000 intlu PO DAILY [facility] Last Admin: 02/27/18 08:13 Dose: 1,000 intlu Clonazepam (Klonopin) 0.25 mg PO DAILY [facility] Last Admin: 02/27/18 08:21 Dose: 0.25 mg Clotrimazole (Lotrimin 1%) 1 applic TOP BID [facility] Last Admin: 02/27/18 08:15 Dose: 1 applic Docusate Sodium (Colace) 100 mg PO BID [facility] Last Admin: 02/27/18 08:13 Dose: Not Given Enoxaparin Sodium (Lovenox) 40 mg SC DAILY [facility]; Protocol Last Admin: 02/27/18 08:14 Dose: 40 mg Fenofibrate (Tricor) 145 mg PO DAILY [facility] Last Admin: 02/27/18 08:13 Dose: 145 mg Finasteride (Proscar) 5 mg PO DAILY [facility] Last Admin: 02/27/18 08:13 Dose: 5 mg Folic Acid (Folic Acid) 1 mg PO DAILY [facility] Last Admin: 02/27/18 08:13 Dose: 1 mg Furosemide (Lasix) 20 mg PO DAILY [facility] Last Admin: 02/27/18 08:15 Dose: 20 mg Ampicillin Sodium/Sulbactam (Sodium 3 gm/ Sodium Chloride) 100 mls @ 100 mls/hr IVPB 0600,1200,1800,0000 [facility]; Protocol Lactulose (Enulose) 20 gm PO QOTHERDAY [facility] Last Admin: 02/27/18 08:15 Dose: Not Given Magnesium Oxide (Mag-Ox) 400 mg PO DAILY [facility] Last Admin: 02/27/18 08:14 Dose: 400 mg Metoprolol Tartrate (Lopressor) 25 mg PO DAILY [facility] Last Admin: 02/27/18 08:14 Dose: 25 mg Montelukast Sodium (Singulair) 10 mg PO DAILY [facility] Last Admin: 02/27/18 08:16 Dose: 10 mg Quetiapine Fumarate (Seroquel) 50 mg PO HS [facility] Last Admin: 02/26/18 21:22 Dose: 50 mg Tamsulosin HCl (Flomax) 0.8 mg PO DAILY [facility] Last Admin: 02/27/18 08:13 Dose: 0.8 mg Assessment and Plan - Assessment and Plan (Free Text) Plan: Pt is demented with PMH of Parkinson, and HTN, malignant renal tumor, with h/o nephrectomy done last year; Admitted to TCU to Complete IV abx for UTI (Enterococcus Faecalis) and physical therapy. UTI WIll continue IV abx Unasyn Continue Physical therapy Follow up with Dr. Guevara recommendation ( ID) Follow up Dr Morales recommendation (Urologist) Urine retention Proscar Flomax 0.8 HTN Chronic, controlled continue home medication Parkinson Chronic Continue home medication DVT prophylaxis Lovenox SC 40 SCD
[2018-02-27] MEDS: Lactobacillus Acidophilus 500 MU Cap PO SCH (21:02)
[2018-02-28] MEDS: Enoxaparin 40 mg Syringe SC SCH (08:35)
[2018-02-28] MEDS: Lactobacillus Acidophilus 500 MU Cap PO SCH ×2 (08:37→21:03)
[2018-02-28] MEDS: Magnesium Oxide 400 mg Tab UD PO SCH (08:37)
[2018-02-28] MEDS: Cholecalciferol 1,000 INTLU TAB PO SCH (08:38)
[2018-03-01] MEDS: Magnesium Oxide 400 mg Tab UD PO SCH (08:29)
[2018-03-01] MEDS: Enoxaparin 40 mg Syringe SC SCH (08:29)
[2018-03-01] MEDS: Cholecalciferol 1,000 INTLU TAB PO SCH (08:30)
[2018-03-01 08:38] VITALS: BP 129/61; PULSE 82; TEMP 97.2; O2SAT 98
[2018-03-01] MEDS: Lactobacillus Acidophilus 500 MU Cap PO SCH (08:44)
--- NOTE | 2018-03-01 10:53 | CP.PCM.DIS ---
Provider - Provider Date of Admission: 02/21/18 21:21 Attending physician: Jh Alves MD Consults: 02/22/18 07:00 Urology Consult Routine Comment: Consulting Provider: Naif Morales Consulting Physician: Naif Morales Reason for Consult: as Time Spent in preparation of Discharge (in minutes): 25 Diagnosis - Discharge Diagnosis (1) Urinary tract infection Status: Acute Comment: Urine culture grew Enterococcus faecalis. completed 12 day course of IV antibiotics (2) Urinary retention Status: Acute Comment: swelling improved after foreskin was retracted by urologist. able to pass urine without catheter. continue Flomas and Finasteride (3) HTN (hypertension) Status: Chronic Comment: BP controlled. continue Metoprolol (4) Parkinson disease Status: Chronic Comment: stable. continue Carbidopa/Levodopa Hospital Course - Hospital Course Hospital Course: 72 yo male with history of Dementia, Parkinson, HTN and previous malignant renal tumor (nephrectomy 2017) initially seen in the ER because of swelling of penile foreskin after he was catheterized at [facility] because of urinary retention. Patient was found to have UTI and was admitted. He was put on Rocephin which later was switched to Unasyn when urine grew Enterococcus Faecalis. He was transferred to TCU for completion of IV antibiotics and therapy. He did well and now is for discharge to [facility] for further therapy. Discharge Exam - Head Exam Head Exam: ATRAUMATIC, NORMAL INSPECTION, NORMOCEPHALIC - ENT Exam ENT Exam: Mucous Membranes Moist - Respiratory Exam Respiratory Exam: absent: Rales, Rhonchi, Wheezes, Respiratory Distress - Cardiovascular Exam Cardiovascular Exam: REGULAR RHYTHM, +S1, +S2 - GI/Abdominal Exam GI & Abdominal Exam: Soft. absent: Tenderness - Rectal Exam Rectal Exam: Deferred - Neurological Exam Neurological exam: Alert - Psychiatric Exam Psychiatric exam: Flat Affect - Skin Skin Exam: Dry, Intact Discharge Plan - Follow Up Plan Condition: GOOD Disposition: HOME/ ROUTINE Instructions: Urinary Tract Infection, Adult (DC), Dementia (DC)
== END 2018-03-01 14:55 | DRG 690 ==
LOC: H.TCU 21:21
PROVIDERS: ADMIT Internal Medicine; ATTEND Internal Medicine
PROC: F07Z8FZ Transfer Training Treatment using Assistive, Adaptive, Supportive or Protective Equipment (ICD-10-PCS; principal; 2018-02-21)
PROC: F07Z5FZ Bed Mobility Treatment using Assistive, Adaptive, Supportive or Protective Equipment (ICD-10-PCS; 2018-02-21)
PROC: F07Z9FZ Gait Training/Functional Ambulation Treatment using Assistive, Adaptive, Supportive or Protective Equipment (ICD-10-PCS; 2018-02-21)
PROC: F08Z3FZ Feeding/Eating Treatment using Assistive, Adaptive, Supportive or Protective Equipment (ICD-10-PCS; 2018-02-21)
PROC: F08Z2FZ Grooming/Personal Hygiene Treatment using Assistive, Adaptive, Supportive or Protective Equipment (ICD-10-PCS; 2018-02-21)
PROC: F08Z1FZ Dressing Techniques Treatment using Assistive, Adaptive, Supportive or Protective Equipment (ICD-10-PCS; 2018-02-21)
PROC: F08Z0FZ Bathing/Showering Techniques Treatment using Assistive, Adaptive, Supportive or Protective Equipment (ICD-10-PCS; 2018-02-21)
DX: N39.0 Urinary tract infection, site not specified (principal); F02.81 Dementia in other diseases classified elsewhere, unspecified severity, with behavioral disturbance; B95.2 Enterococcus as the cause of diseases classified elsewhere; G20 Parkinson's disease; H91.90 Unspecified hearing loss, unspecified ear; Z66 Do not resuscitate; Z90.5 Acquired absence of kidney; I12.9 Hypertensive chronic kidney disease with stage 1 through stage 4 chronic kidney disease, or unspecified chronic kidney disease; N18.9 Chronic kidney disease, unspecified; N48.89 Other specified disorders of penis; Z85.528 Personal history of other malignant neoplasm of kidney